=== PATIENT | male | born 1945 | race Caucasian/White ===

== ENCOUNTER 2016-05-27 16:52 | Inpatient (IN) | payer MEDICARE, OTHER ==
[2016-05-27 17:19] LABS: AUTOMATED BASOPHIL 0.2 % (0-2); AUTOMATED EOSINOPHIL 0.3 % (0-5); AUTOMATED LYMPH 7.8 % (17-44); AUTOMATED MONOCYTE 13.8 % (3-10); AUTOMATED NEUTROPHIL 77.9 % (45-76); MPV 7.9 fL (7.4-10.4)
--- NOTE | 2016-05-27 17:19 | EDPRACDOC ---
- History of Present Illness Onset: TODAY? HPI: PT FROM LOCAL SNF VIA EMS WITH REPORTS OF FEVER AND "NECROTIC TOES", PER EMS SNF STAFF REPORTED THAT PT'S TOES WERE "NORMAL" YESTERDAY, NOW ARE BLACK, PT JUST ADMITTED TO SNF ON LAST TUESDAY DUE FOR "REHAB AND WOUND CARE", HAS HX OF TOE ULCER, EVIDENTLY PREVIOUSLY LIVED AT HOME PRIOR TO TUESDAY, PT IS ORIENTED TO SELF ONLY AND IS UNABLE TO GIVE ANY ADDITIONAL HISTORY. PT COMPLAINS OF "PAIN ALL OVER" Relevant History: Reports: Chronic Illness Treated Infection: None Contact Exposure To: NONE Travel To: NONE Symptoms: Reports: Myalgia, Weakness, Other (WOUNDS BILATERAL FEET) <Percy Schaffer - Last Filed: 05/27/16 17:53> <uJan Johnson - Last Filed: 05/27/16 18:22> - General Information Stated Complaint: FEVER Time Seen by Provider: 05/27/16 17:05 Home Medications: Home Medications Rivaroxaban [Xarelto] 20 mg PO DAILY 09/20/13 Aspirin (Enteric Coated) [Halfprin] 81 mg PO DAILY #30 12/15/15 Metoprolol Tartrate [Lopressor] 100 mg PO BID #60 12/15/15 Simvastatin [Zocor] 10 mg PO HS #30 12/15/15 Acetaminophen [Mapap] 650 mg PO Q6H PRN 05/27/16 Allopurinol [Zyloprim] 300 mg PO DAILY 05/27/16 Cefepime HCl 2 gm IV DAILY 05/27/16 Collagenase [Santyl] 2 gm TOP DAILY 05/27/16 Armstrong's Goo 2 gm TOP BID 05/27/16 HydrOXYzine HCl (Antihistamine [Atarax] 25 mg PO Q8H PRN 05/27/16 Nystatin 1 gm TOP DAILY PRN 05/27/16 Omeprazole 20 mg PO DAILY 05/27/16 Oxycodone Immediate Release [Oxycodone Immediate Release (OxyIR)] 5 mg PO Q4H PRN 05/27/16 Allergies/Adverse Reactions: Allergies Allergy/AdvReac Type Severity Reaction Status Date / Time No Known Allergies Allergy Verified 12/09/15 15:58 ED Past Medical History - History Reviewed Yes Nurses notes reviewed and agree except as marked - Patient Medical History Cardiac History: Reports: Coronary Artery Disease (History of PCI and stenting) , Atrial Fibrillation, Hypertension, Congestive Heart Failure (Chronic diastolic ), Cardiac Catheterization (Cardiac stent 2011), Stress Test, Hypercholesterolemia Respiratory History: Denies: Pulmonary Embolism GI/ History: Reports: Renal Disease (History of acute kidney injury and hyperkalemia that resolved) Musculoskeletal History: Reports: Arthritis (R knee) Psychological History: Denies: Depression, Substance Use Disorder Systemic History: Denies: Cancer Surgical History: Reports: Cardiac Catheterization (Cardiac stent 2011), Other ( Knee) - Family Medical History Reports: Hypertension (mother), Diabetes (mother), Cancer (mother - skin; father - prostate), Stroke (mother), Cardiac Disorders (mother - atrial fib) - Social Medical History Smoking Status: Former smoker Social History: Denies: Substance Use Disorder Lives In: [facility] Facility <Percy Schaffer - Last Filed: 05/27/16 17:53> EDM Review of Systems - Review of Systems ROS Unobtainable: Yes ROS cannot be obtained due to patient's medical condition <Percy Schaffer - Last Filed: 05/27/16 17:53> - Physical Exam Constitutional: Alert (Awake), No apparent distress Oriented to: Person Last recorded Vital Signs: Oxygen Pulse Oxygen Saturation O2 Device Oxygen Flow Rate Fraction of Inspired Oxygen ( FIO2) - HEENT Head: Normal ( normocephalic) Eye Exam: Normal (PERRL, EOMI, Sclera white) Oropharynx: Normal (Pharynx:Moist without exudate,Gums-no swelling) Tympanic Membrane: Normal ENT EAC: Normal TMJ: Normal Nose: No Symptoms Reported (septum midline) Neck: Normal (FROM, trachea at midline) - Respiratory/Cardiovascular Respiratory: Normal - CTA (BBS clear to auscultation without adventitious sounds ) Cardiovascular: Normal (RRR without murmur, gallop or rub) - GI Auscultation: Normal (NABS) Palpation: Normal (Soft,No rebound or guarding, non distended) Tenderness: Non tender Mancia's Sign: Negative - Musculoskeletal Back: Normal (Non-Tender) Extremities: Normal (Normal tone, Pulses 2+ No cyanosis or edema, FROM) - Integumentary Skin: Warm, Dry, Other (BILATERAL LOWER LEGS, FEET BANDAGED, BLOODY DRAINAGE NOTED, TOES OF LEFT FOOT NECROTIC DIFFUSE ERYTHEMA NOTED TO BACK AND BUTTOCKS WITH EARLY SKIN BREAKDOWN NOTED BILATERAL BUTTOCKS 3 CM OVAL DECUB NOTED POSTERIOR LEFT THIGH) Lymphatics: Normal (no adenopathy) - Neurologic Memory Impaired: Unable to Test Motor Function: Unable to Test Cranial Nerve: Unable to Test Cerebellar: Unable to Test Mood Description: Calm <Percy Schaffer - Last Filed: 05/27/16 17:53> - Physical Exam Last recorded Vital Signs: Oxygen Pulse Oxygen Saturation O2 Device Oxygen Flow Rate Fraction of Inspired Oxygen ( FIO2) <Juan Johnson - Last Filed: 05/27/16 18:22> - Differential Diagnosis Other (GANGRENE), Sepsis - Re-evaluation Re-evaluation 1 Re-evaluation Time: 17:55 (FEBRILE, DISCUSSED WITH DR JOHNSON HE HAS SEEN PT AND WILL DISCUSS WITH THE HOSPITALIST) - Results 05/27/16 17:00 05/27/16 17:00 05/27/16 17:55 Laboratory Results - last 24 hr 05/27/16 05/27/16 17:00 17:00 WBC 11.9 H RBC 3.46 L Hgb 9.8 L Hct 30.9 L MCV 89 MCH 28.3 MCHC 31.7 L RDW 19.4 H Plt Count 238 MPV 7.9 Neut % (Auto) 77.9 H Lymph % (Auto) 7.8 L Avery % (Auto) 13.8 H Eos % (Auto) 0.3 Baso % (Auto) 0.2 Absolute Neuts (auto) 9.16 H Absolute Lymphs (auto) 0.83 Sodium 134 L Potassium 4.8 Chloride 99 Carbon Dioxide 22 Anion Gap 18 H BUN 113 H Creatinine 5.00 H Estimated GFR (MDRD) 12 L Glucose 104 H Calculated Osmolality 294 H Calcium 7.7 L Corrected Calcium 8.8 Total Bilirubin 0.6 AST 100 H ALT 50 Alkaline Phosphatase 146 Creatine Kinase 1505 H Troponin I < 0.01 Total Protein 6.4 Albumin 2.9 L Amylase 46 Lipase 151 - EKG EKG #1 EKG Time: 17:20 -: Yes EKG interpreted by me Rate: bpm: 112 [place]: Normal Rhythm: Afib Block: None Hypertrophy: None ST: Nonsp Comparison: 09/25/15 (NO CHANGE) - Additional Information OLD RECORDS REVIEWED, PT HAS HX OF PAD SISTER STATES THAT PT WAS CARING FOR HIMSELF AT HOME WITH [employer]ISTANCE OF HOME HEALTH AND MEALS ON WHEELS BEFORE HE WENT TO SNF ON TUESDAY OF LAST WEEK. <SchafferPrecy - Last Filed: 05/27/16 17:53> - Results 05/27/16 17:00 05/27/16 17:00 WBC 11.9 xk/uL (3.8-10.8) H 05/27/16 17:00 RBC 3.46 xM/uL (4.70-6.10) L 05/27/16 17:00 Hgb 9.8 g/dL (14.0-18.0) L 05/27/16 17:00 Hct 30.9 % (42-52) L 05/27/16 17:00 MCV 89 fL (80-94) 05/27/16 17:00 MCH 28.3 pg (27-32) 05/27/16 17:00 MCHC 31.7 g/dl (33-36) L 05/27/16 17:00 RDW 19.4 % (11.5-14.5) H 05/27/16 17:00 Plt Count 238 xk/uL (130-400) 05/27/16 17:00 MPV 7.9 fL (7.4-10.4) 05/27/16 17:00 Neut % (Auto) 77.9 % (45-76) H 05/27/16 17:00 Lymph % (Auto) 7.8 % (17-44) L 05/27/16 17:00 Avery % (Auto) 13.8 % (3-10) H 05/27/16 17:00 Eos % (Auto) 0.3 % (0-5) 05/27/16 17:00 Baso % (Auto) 0.2 % (0-2) 05/27/16 17:00 Absolute Neuts (auto) 9.16 xk/uL (1.7-8.2) H 05/27/16 17:00 Absolute Lymphs (auto) 0.83 xk/uL (0.65-4.75) 05/27/16 17:00 PT 15.8 SEC (9.2-11.2) H 05/27/16 17:00 INR 1.5 05/27/16 17:00 APTT 43.7 SEC (22-35) H 05/27/16 17:00 D-Dimer Quant (PE/DVT) 1010 ng/mL (<500) H 05/27/16 17:00 Sodium 134 mEq/L (137-146) L 05/27/16 17:00 Potassium 4.8 mEq/L (3.5-5.1) 05/27/16 17:00 Chloride 99 mEq/L (98-107) 05/27/16 17:00 Carbon Dioxide 22 mMOL/L (22-33) 05/27/16 17:00 Anion Gap 18 mEq/L (8-16) H 05/27/16 17:00 BUN 113 MG/DL (9-20) H 05/27/16 17:00 Creatinine 5.00 MG/DL (0.66-1.25) H 05/27/16 17:00 Estimated GFR (MDRD) 12 mL/min (>=60) L 05/27/16 17:00 Glucose 104 MG/DL (70-99) H 05/27/16 17:00 Calculated Osmolality 294 MOs/Kg (270-290) H 05/27/16 17:00 Lactic Acid 1.6 mEq/L (0.7-2.1) 05/27/16 17:00 Calcium 7.7 MG/DL (8.4-10.2) L 05/27/16 17:00 Corrected Calcium 8.8 MG/DL (8.4-10.2) 05/27/16 17:00 Total Bilirubin 0.6 MG/DL (0.2-1.3) 05/27/16 17:00 AST 100 IU/L (17-59) H 05/27/16 17:00 ALT 50 IU/L (21-72) 05/27/16 17:00 Alkaline Phosphatase 146 IU/L (50-160) 05/27/16 17:00 Creatine Kinase 1505 IU/L (55-170) H 05/27/16 17:00 CK-MB (CK-2) 16.9 ng/mL (0-4.5) H 05/27/16 17:00 CK-MB (CK-2) Rel Index 1.1 (0.0-2.2) 05/27/16 17:00 Myoglobin 6629.0 ng/mL (0-101) H 05/27/16 17:00 Troponin I < 0.01 ng/mL (<.04) 05/27/16 17:00 Total Protein 6.4 G/DL (6.3-8.2) 05/27/16 17:00 Albumin 2.9 G/DL (3.5-5.0) L 05/27/16 17:00 Amylase 46 IU/L (30-110) 05/27/16 17:00 Lipase 151 U/L (23-300) 05/27/16 17:00 Lab Results 05/27/16 05/27/16 05/27/16 17:00 17:00 17:00 WBC 11.9 H RBC 3.46 L Hgb 9.8 L Hct 30.9 L MCV 89 MCH 28.3 MCHC 31.7 L RDW 19.4 H Plt Count 238 MPV 7.9 Neut % (Auto) 77.9 H Lymph % (Auto) 7.8 L Avery % (Auto) 13.8 H Eos % (Auto) 0.3 Baso % (Auto) 0.2 Absolute Neuts (auto) 9.16 H Absolute Lymphs (auto) 0.83 PT 15.8 H INR 1.5 APTT 43.7 H D-Dimer Quant (PE/DVT) 1010 H Sodium Potassium Chloride Carbon Dioxide Anion Gap BUN Creatinine Estimated GFR (MDRD) Glucose Calculated Osmolality Lactic Acid Calcium Corrected Calcium Total Bilirubin AST ALT Alkaline Phosphatase Creatine Kinase CK-MB (CK-2) CK-MB (CK-2) Rel Index Myoglobin Troponin I Total Protein Albumin Amylase Lipase 05/27/16 05/27/16 17:00 17:00 WBC RBC Hgb Hct MCV MCH MCHC RDW Plt Count MPV Neut % (Auto) Lymph % (Auto) Avery % (Auto) Eos % (Auto) Baso % (Auto) Absolute Neuts (auto) Absolute Lymphs (auto) PT INR APTT D-Dimer Quant (PE/DVT) Sodium 134 L Potassium 4.8 Chloride 99 Carbon Dioxide 22 Anion Gap 18 H BUN 113 H Creatinine 5.00 H Estimated GFR (MDRD) 12 L Glucose 104 H Calculated Osmolality 294 H Lactic Acid 1.6 Calcium 7.7 L Corrected Calcium 8.8 Total Bilirubin 0.6 AST 100 H ALT 50 Alkaline Phosphatase 146 Creatine Kinase 1505 H CK-MB (CK-2) 16.9 H CK-MB (CK-2) Rel Index 1.1 Myoglobin 6629.0 H Troponin I < 0.01 Total Protein 6.4 Albumin 2.9 L Amylase 46 Lipase 151 <Juan Johnson - Last Filed: 05/27/16 18:22> ED Critical Care Note - Critical Care Note Total Time (mins): 30 Comments: Due to the presence of and / or the risk of deterioration, my attendance to this patient required critical care time, including assessment/reassessment, documentation, ordering and interpreting ancillary studies, discussion with ED staff and consultants,patient and family, and excludes time spent on separately billable procedures. <Percy Schaffer - Last Filed: 05/27/16 17:53> - Departure Education/Counseling Given To: Patient, Family Member Education/Counseling Given Regarding: Diagnosis, Treatment, Prognosis, Follow Up <Percy Schaffer - Last Filed: 05/27/16 17:53> - Departure Yes I personally saw and evaluated the patient. Disposition: Admit IP To This Hospital Decision to Admit Time: 18:22 Decision to admit date: 05/27/16 Decision to admit: from ED - Physician Consulted Hospitalist Time Called: 18:22 Provider Called: Sal Odom Time Photolith Operator Returned Call: 18:22 <Juan Johnson - Last Filed: 05/27/16 18:22> - Departure Condition: Serious Final Diagnosis: GANGRENE LEFT FOOT, Acute on chronic renal failure, PAD (peripheral artery disease) Sepsis Qualifiers: Sepsis type: sepsis due to unspecified organism Qualified Code(s): A41.9 - Sepsis, unspecified organism Rhabdomyolysis Qualifiers: Rhabdomyolysis type: non-traumatic Qualified Code(s): M62.82 - Rhabdomyolysis
[2016-05-27 17:32] LABS: BLOOD UREA NITROGEN 113 MG/DL (9-20); CALC CORRECTED 8.8 MG/DL (8.4-10.2); CALCIUM 7.7 MG/DL (8.4-10.2); CALCULATED OSMOLALITY 294 MOs/Kg (270-290); CHLORIDE 99 mEq/L (98-107); CPK TOTAL WITH POSSIBLE MB 1505 IU/L (55-170); GLUCOSE 104 MG/DL (70-99); SODIUM LEVEL 134 mEq/L (137-146); TOTAL PROTEIN 6.4 G/DL (6.3-8.2)
[2016-05-27 17:41] LABS: PARTIAL THROMB. TIME 43.7 SEC (22-35); PT-INR 1.5
[2016-05-27 17:47] LABS: CPKMB 16.9 ng/mL (0-4.5); CPKMB RELATIVE INDEX 1.1 (0.0-2.2)
[2016-05-27] MEDS ORDERED: NS 1,000 ML IV ONE ×4 (17:58→23:57)
[2016-05-27] MEDS ORDERED: Pharmacy Order Set Alert SCH ×2 (18:00→22:00)
--- NOTE | 2016-05-27 18:14 | DIRPT ---
CLINICAL DATA: Fever, necrotic toes. EXAM: PORTABLE CHEST 1 VIEW COMPARISON: 12/14/2015 FINDINGS: There is elevation of the right diaphragm. There is no focal parenchymal opacity. There is no pleural effusion or pneumothorax. The heart and mediastinal contours are unremarkable. Right-sided PICC line with the tip projecting over the cavoatrial junction. The osseous structures are unremarkable. IMPRESSION: No active disease. Electronically Signed By: Akilah Lamb On: 05/27/2016 18:11
[2016-05-27 18:33] LABS: LEUKOCYTES/URINE NEG (NEGATIVE); NITRITE/URINE NEG (NEGATIVE); URINE OCCULT BLOOD 1+ (NEG/TRACE); WBC/URINE 0-2 (0-2)
[2016-05-27] MEDS ORDERED: FENTANYL 100 MCG/2 ML VIAL IV ONE (18:36)
[2016-05-27] MEDS ORDERED: CHAPSTICK LIP BALM TOP ONE (19:45)
[2016-05-27] MEDS ORDERED: PIPERACILLIN AND TAZOBACTAM 3.375 GM in D5W 100 ML IV ONE (20:00)
--- NOTE | 2016-05-27 20:19 | HISTPHYS ---
- Chief Complaint altered mental status, toes black - History of Present Illness PRIMARY CARE PROVIDER: Previously Dr. Reardon. Is Dr. Leigh at [facility]. HPI: The patient is a 71 yo man with a long history of peripheral vascular disease in his lower extremities, with development of toe ulcer starting about 6 months ago and gradually progressive to other toes, who presents today from his retirement facility with acute worsening of his toe lesions, toes now black , and having altered mental status. The patient is severely fatigued, in pain, and often somnolent, so his sister gives much of the history. His sister reports that his feet have been painful for him for about a year, but that it worsened 6 months ago to the point that eventually he had to be placed in a group home. His toes have had chronic wounds that are being treated. She reports she visited the patient several days ago and he was in his usual state of health, but the day before yesterday he was not acting quite right. Yesterday the patient's toes were somewhat worse, and labs were drawn. He was found to have abnormal labs, and these were treated at the facility. Then today , he had a marked change in color of his toes, worsening pain, and altered mental status. The facility sent the patient to the emergency department for further evaluation. Onset: Peripheral vascular disease for over a year, gradually worsening to include toe ulcerations and chronic foot and leg wounds. Marked color change in toes today. Duration: Progressively worsening. Location: bilateral lower extremities from below knees to toes. Left foot much worse than right. Radiation: in both legs. Character: Severe pain, 10/10, sharp. Alleviated by: Nothing. Exacerbated by: movement or touching leg. Associated Symptoms: Black toes with exudate. Severe pain. Erythema of both extremities. Open wounds. Bleeding of skin on lower legs and feet as well as the toes. Unable to get out of bed or bear weight on legs; barely able to even move the legs. Weakness in both legs, symmetric. Confusion, somnolence. Fever, chills, and diaphoresis. Shortness of breath. No wheezing. Treatments: none at home except usual medications. - Medical History Cardiac History: Reports: Coronary Artery Disease (History of PCI and stenting) , Atrial Fibrillation, Hypertension, Congestive Heart Failure (Chronic diastolic. EF 50%.), Cardiac Catheterization (Cardiac stent 2011), Stress Test, Hypercholesterolemia, Other (Severe peripheral vascular disease, with chronic wounds in legs.) Respiratory History: Reports: Emphysema. Denies: Pulmonary Embolism GI/ History: Reports: Renal Disease (History of acute kidney injury and hyperkalemia that resolved), Gastroesophageal Reflux Musculoskeletal History: Reports: Arthritis (R knee), Gout, Rheumatoid Arthritis (AND LUPUS) Systemic History: Denies: Cancer Psychological History: Denies: Depression, Substance Use Disorder - Surgical History Reports: Cardiac Catheterization (Cardiac stent 2011), Other (Knee) - Medictions/Allergies Allergies No Known Allergies Allergy (Verified 12/09/15 15:58) Current Medication List: Reviewed Home Medications Rivaroxaban [Xarelto] 20 mg PO DAILY 09/20/13 Aspirin (Enteric Coated) [Halfprin] 81 mg PO DAILY #30 12/15/15 Metoprolol Tartrate [Lopressor] 100 mg PO BID #60 12/15/15 Simvastatin [Zocor] 10 mg PO HS #30 12/15/15 Acetaminophen [Mapap] 650 mg PO Q6H PRN 05/27/16 Allopurinol [Zyloprim] 300 mg PO DAILY 05/27/16 Cefepime HCl 2 gm IV DAILY 05/27/16 Collagenase [Santyl] 2 gm TOP DAILY 05/27/16 Armstrong's Goo 2 gm TOP BID 05/27/16 HydrOXYzine HCl (Antihistamine [Atarax] 25 mg PO Q8H PRN 05/27/16 Nystatin 1 gm TOP DAILY PRN 05/27/16 Omeprazole 20 mg PO DAILY 05/27/16 Oxycodone Immediate Release [Oxycodone Immediate Release (OxyIR)] 5 mg PO Q4H PRN 05/27/16 - Family History Reports: Hypertension (mother), Diabetes (mother), Cancer (mother - skin; father - prostate), Stroke (mother), Cardiac Disorders (mother - atrial fib) - Social History Smoking Status: Former smoker Social History: Denies: Alcohol Use, Substance Use Disorder - Review of Systems GENERAL: Fever, chills, and diaphoresis. Positive for fatigue/malaise. HEENT: No ear pain or discharge. No nasal discharge or bleeding. No throat pain or swelling. No eye pain or eye redness. RESPIRATORY: No cough, wheezing. Shortness of breath. CARDIOVASCULAR: No chest pain or palpitations. GI: No abdominal pain, nausea, vomiting, diarrhea, constipation, or bloody stool. NEUROLOGICAL: No headache. Has focal weakness in both legs. INTEGUMENT: Erythema and open wounds with pain on lower legs. Has exudate, pain , necrosis of toes. No itching. LYMPHATIC SYSTEM: no lymph node swelling or pain. MUSCULOSKELETAL: Except in legs, no new pain or joint swelling. GENITOURINARY: No dysuria or hematuria. ENDOCRINE: No polyuria or polydipsia. HEME: No chronic anemia. Having some bleeding from lower legs. Easy bruising. - Physical Exam Vital Signs: Initial Vitals Temperature 100.1 F 05/27/16 16:55 Pulse Rate 86 05/27/16 16:55 Respiratory Rate 20 05/27/16 16:55 Blood Pressure 107/58 L 05/27/16 16:55 Pulse Oxygen Saturation 95 05/27/16 16:55 05/27/16 05/27/16 05/27/16 21:14 21:45 22:00 Temperature 98.9 F Pulse Rate 85 100 84 Respiratory 18 18 18 Rate Blood Pressure 90/52 L 113/58 L 125/84 Pulse Oxygen 97 95 94 Saturation 05/27/16 05/27/16 05/27/16 22:15 22:30 22:45 Temperature Pulse Rate 85 83 82 Respiratory 18 18 18 Rate Blood Pressure 93/53 L 110/58 L 106/58 L Pulse Oxygen 96 96 96 Saturation 05/27/16 05/27/16 05/27/16 23:00 23:15 23:30 Temperature Pulse Rate 83 85 83 Respiratory 18 18 18 Rate Blood Pressure 90/52 L 69/42 L 145/64 Pulse Oxygen 96 96 92 Saturation - Other Exam Other Exam Findings: GENERAL: Ill-appearing, well nourished, in acute distress. HEENT: Normocephalic, atraumatic; pupils equal and round. Nares patent, without discharge or bleeding. No oropharyngeal lesions or erythema. Mucous membranes are dry. NECK: is supple, no masses, trachea midline. RESPIRATORY: Clear to auscultation bilaterally. Chest wall movements are symmetric. No use of accessory muscles to breathe. No wheezing, rales, rhonchi. CARDIOVASCULAR: Normal S1, S2. No rubs, or gallops. PMI non-displaced. Carotids : no carotid bruits. Tachycardia. DP pulses barely palpable bilaterally. GI: soft, nontender, non-distended, normal active bowel sounds. No hepatosplenomegaly. INTEGUMENT: Clean, diaphoretic. * Left toes: black escar, necrosis of most of the surface of all toes of left foot; left great toe is the most severe. Rest of each toe is erythematous. Purulent exudate seeping from between toes and from great toe and 2nd toe. Toes are bloody. Severe tenderness to palpation. Warmth. * Left foot/ankle/heel: Erythematous, bloody, with superficial layers of skin removed over parts of the foot. Warmth. Severe tenderness to palpation. Wound on heel. * Left lower leg: Dry with scaling skin on the upper third of left lower leg. On the lower two thirds of the left lower leg: open skin and wounds with erythema, raw, with areas of bloody skin, very tender, warm. * Right toes: with areas of erythema and a few areas of necrotic black toe, but much less than found on the left foot. * Right foot/ankle: mild erythema but not bloody. Tender to palpation and warm. * Right lower leg: Dry with scaling skin on the two thirds of right lower leg. On the lower third of the right lower leg: Erythema, raw, with areas of open bloody skin, very tender, warm. MUSCULOSKELETAL: No cyanosis. No clubbing. Edema: 1+ pitting edema in the lower extremities bilaterally, with 2+ pitting in the left foot. NEUROLOGICAL: Cranial nerves 2-12 grossly intact. Motor 3+ to 4/5 in upper extremities. 2+/5 in right lower extremity and 1/5 in left lower extremity. Reflexes: decreased bilaterally. Babinski: unable to perform due to severity of patient's open wounds and tenderness. Intact Finger to nose. Sensory grossly intact to light touch. Intact rapid alternating movements bilaterally. No pronator drift. PSYCHIATRIC: Oriented to person and place. Intermittently somnolent. LYMPHATIC: No cervical lymphadenopathy. No supraclavicular lymphadenopathy. - Lab Results Laboratory Tests 05/27/16 05/27/16 05/27/16 17:00 17:00 17:00 WBC 11.9 H RBC 3.46 L Hgb 9.8 L Hct 30.9 L MCV 89 MCH 28.3 MCHC 31.7 L RDW 19.4 H Plt Count 238 MPV 7.9 Neut % (Auto) 77.9 H Lymph % (Auto) 7.8 L Putnam % (Auto) 13.8 H Eos % (Auto) 0.3 Baso % (Auto) 0.2 Absolute Neuts (auto) 9.16 H Absolute Lymphs (auto) 0.83 ESR PT INR APTT D-Dimer Quant (PE/DVT) Sodium 134 L Potassium 4.8 Chloride 99 Carbon Dioxide 22 Anion Gap 18 H BUN 113 H Creatinine 5.00 H Estimated GFR (MDRD) 12 L Glucose 104 H Calculated Osmolality 294 H Lactic Acid 1.6 Calcium 7.7 L Corrected Calcium 8.8 Total Bilirubin 0.6 AST 100 H ALT 50 Alkaline Phosphatase 146 Creatine Kinase 1505 H CK-MB (CK-2) 16.9 H CK-MB (CK-2) Rel Index 1.1 Myoglobin 6629.0 H Troponin I < 0.01 Total Protein 6.4 Albumin 2.9 L Amylase 46 Lipase 151 Urine Color Urine Clarity Urine pH Ur Specific Eddy Urine Protein Urine Glucose (UA) Urine Ketones Urine Occult Blood Urine Nitrite Urine Bilirubin Urine Urobilinogen Ur Leukocyte Esterase Urine RBC Urine WBC Ur Epithelial Cells Urine Bacteria Hyaline Casts Blood Type Antibody Screen Crossmatch 05/27/16 05/27/16 05/27/16 17:00 17:00 17:45 WBC RBC Hgb Hct MCV MCH MCHC RDW Plt Count MPV Neut % (Auto) Lymph % (Auto) Putnam % (Auto) Eos % (Auto) Baso % (Auto) Absolute Neuts (auto) Absolute Lymphs (auto) ESR PT 15.8 H INR 1.5 APTT 43.7 H D-Dimer Quant (PE/DVT) 1010 H Sodium Potassium Chloride Carbon Dioxide Anion Gap BUN Creatinine Estimated GFR (MDRD) Glucose Calculated Osmolality Lactic Acid Calcium Corrected Calcium Total Bilirubin AST ALT Alkaline Phosphatase Creatine Kinase CK-MB (CK-2) CK-MB (CK-2) Rel Index Myoglobin Troponin I Total Protein Albumin Amylase Lipase Urine Color Dark yellow Urine Clarity Sl hzy Urine pH 6.0 Ur Specific Eddy 1.020 Urine Protein Neg Urine Glucose (UA) Neg Urine Ketones Neg Urine Occult Blood 1+ H Urine Nitrite Neg Urine Bilirubin Neg Urine Urobilinogen <2.0 Ur Leukocyte Esterase Neg Urine RBC 5-10 H Urine WBC 0-2 Ur Epithelial Cells 1+ Urine Bacteria Few Hyaline Casts 10-20 H Blood Type Antibody Screen Crossmatch 05/27/16 05/27/16 05/27/16 20:20 23:00 23:00 WBC RBC Hgb Hct MCV MCH MCHC RDW Plt Count MPV Neut % (Auto) Lymph % (Auto) Putnam % (Auto) Eos % (Auto) Baso % (Auto) Absolute Neuts (auto) Absolute Lymphs (auto) ESR PT INR APTT D-Dimer Quant (PE/DVT) Sodium Potassium Chloride Carbon Dioxide Anion Gap BUN Creatinine Estimated GFR (MDRD) Glucose Calculated Osmolality Lactic Acid Calcium Corrected Calcium Total Bilirubin AST ALT Alkaline Phosphatase Creatine Kinase 2530 H 3175 H CK-MB (CK-2) 18.4 H 21.6 H CK-MB (CK-2) Rel Index 0.7 0.7 Myoglobin 8062.0 H Troponin I < 0.01 < 0.01 Total Protein Albumin Amylase Lipase Urine Color Urine Clarity Urine pH Ur Specific Eddy Urine Protein Urine Glucose (UA) Urine Ketones Urine Occult Blood Urine Nitrite Urine Bilirubin Urine Urobilinogen Ur Leukocyte Esterase Urine RBC Urine WBC Ur Epithelial Cells Urine Bacteria Hyaline Casts Blood Type O POSITIVE Antibody Screen Negative Crossmatch See Detail 05/27/16 23:00 WBC RBC Hgb Hct MCV MCH MCHC RDW Plt Count MPV Neut % (Auto) Lymph % (Auto) Putnam % (Auto) Eos % (Auto) Baso % (Auto) Absolute Neuts (auto) Absolute Lymphs (auto) ESR 123 H PT INR APTT D-Dimer Quant (PE/DVT) Sodium Potassium Chloride Carbon Dioxide Anion Gap BUN Creatinine Estimated GFR (MDRD) Glucose Calculated Osmolality Lactic Acid Calcium Corrected Calcium Total Bilirubin AST ALT Alkaline Phosphatase Creatine Kinase CK-MB (CK-2) CK-MB (CK-2) Rel Index Myoglobin Troponin I Total Protein Albumin Amylase Lipase Urine Color Urine Clarity Urine pH Ur Specific Eddy Urine Protein Urine Glucose (UA) Urine Ketones Urine Occult Blood Urine Nitrite Urine Bilirubin Urine Urobilinogen Ur Leukocyte Esterase Urine RBC Urine WBC Ur Epithelial Cells Urine Bacteria Hyaline Casts Blood Type Antibody Screen Crossmatch - Diagnostic Findings EK bpm. Atrial fibrillation with RVR. Low voltage QRS. Possible septal infarct, age undetermined. Reviewed EKG personally. Chest x-ray, viewed personally: EXAM: PORTABLE CHEST 1 VIEW COMPARISON: 12/14/2015 FINDINGS: There is elevation of the right diaphragm. There is no focal parenchymal opacity. There is no pleural effusion or pneumothorax. The heart and mediastinal contours are unremarkable. Right-sided PICC line with the tip projecting over the cavoatrial junction. The osseous structures are unremarkable. IMPRESSION: No active disease. - Assessment (1) Sepsis A41.9 - SEPSIS, UNSPECIFIED ORGANISM Acute Present on Admission: Yes Qualifiers: Sepsis type: sepsis due to unspecified organism Qualified Code(s): A41.9 - Sepsis, unspecified organism (2) Dry gangrene I96 - GANGRENE, NOT ELSEWHERE CLASSIFIED Acute Present on Admission: Yes Severe worsenening over 1.5 days prior to admission. Plan: Likely needs amputation. IV antibiotics: IV Zosyn and Vancomycin ordered. Consulted Dr. Interiano, who will provide management of the gangrene. (3) Acute renal failure N17.9 - ACUTE KIDNEY FAILURE, UNSPECIFIED Acute Present on Admission: Yes Qualifiers: Acute renal failure type: with acute tubular necrosis Qualified Code(s): N17.0 - Acute kidney failure with tubular necrosis (4) Rhabdomyolysis M62.82 - RHABDOMYOLYSIS Acute Present on Admission: Yes Qualifiers: Rhabdomyolysis type: non-traumatic Qualified Code(s): M62.82 - Rhabdomyolysis (5) Metabolic encephalopathy G93.41 - METABOLIC ENCEPHALOPATHY Acute Present on Admission: Yes - Plan PLAN: (1) Sepsis A41.9 - SEPSIS, UNSPECIFIED ORGANISM Acute Present on Admission: Yes Qualifiers: Sepsis type: sepsis due to unspecified organism Qualified Code(s): A41.9 - Sepsis, unspecified organism Present on admission. Criteria: Pulse of 90, resp rate 22 witnessed, fever prior to arrival. Source: Gangrene of the toes. Plan: Sepsis order set. Cultures ordered. IV antibiotics: IV Vancomycin and Zosyn. First dose of Vancomycin given in the ED; will likely not need another dose for days because the patient's creatinine is greater than 5. IV fluids to provide volume. Monitor for signs of volume depletion, monitor blood pressure carefully. If still hypotensive with IV fluids consider pressors. Close monitoring. Telemetry. IVF: initial IVF 30 mL/kg x 1, then 250 mL/hr x 1 L, then maintenance IVF. (2) Dry gangrene I96 - GANGRENE, NOT ELSEWHERE CLASSIFIED Acute Present on Admission: Yes Severe worsenening over 1.5 days prior to admission. Plan: Likely needs amputation. IV antibiotics: IV Zosyn and Vancomycin ordered. Consulted Dr. Interiano, who will provide management of the gangrene. (3) Acute renal failure N17.9 - ACUTE KIDNEY FAILURE, UNSPECIFIED Acute Present on Admission: Yes Likely multifactorial. Could be due in part to the rhabdomyolysis and sepsis. Plan: Cultures. Ultrasound - renal. IVFs. (4) Rhabdomyolysis M62.82 - RHABDOMYOLYSIS Acute Present on Admission: Yes Qualifiers: Rhabdomyolysis type: non-traumatic Qualified Code(s): M62.82 - Rhabdomyolysis Likely due to the acutely worsening gangrene. Plan: IVFs at 250 mL/hr after boluses if patient is able to tolerate. Monitor CPK and myoglobin. (5) Metabolic encephalopathy G93.41 - METABOLIC ENCEPHALOPATHY Acute Present on Admission: Yes Likely due to sepsis and gangrene along with renal failure. Plan: Monitor. Neuro checks. In summary, this patient is acutely and critically ill. The patient requires treatment of vital organ failure and measures to prevent further life- threatening deterioration of condition. I have spent 60 min in the critical care of this patient. Case Care Discussed with: Patient, Family, Nursing Staff Total Time: 60 min Critical Care: Yes Code: 291 - Focused CV Perfusion Exam Date exam occurred: 05/27/16 Time of Exam: 20:30 Vital Signs: Last Vital Signs Temp 98.9 F 05/27/16 21:45 Pulse 136 H 05/27/16 22:30 Resp 18 05/27/16 22:30 BP 110/58 L 05/27/16 22:30 Pulse Ox 96 05/27/16 22:30 Respiratory: Chest non-tender, Lungs clear, No accessory muscle use. negative: Crackles, Rales, Rhonchi Cardiovascular/Chest: Tachycardia (Normal S1, S2) Capillary Refill: Greater than 3 seconds Peripheral pulses: Diminished: Dorsalis pedis (R), Dorsalis pedis (L), Posterior tibialis (R), Posterior tibialis (L), Full: Radial (R), Radial (L) Skin Color: Erythema, Blackened Skin Turgor: <3 Seconds
--- NOTE | 2016-05-27 20:53 | PCM.SURGCO ---
Consultation Date: 05/27/16 Requesting Physician: Sal Odom Foil Operator: Frankie Itneriano Consult Reason: Wound - History of Present Illness This is a 71 year old male that has been residing at [facility] for approximately one week. The patient is oriented only to himself. The history was obtained from the patient' s chart. The distal aspect of all five toes apparently turned black yesterday or today according to the patient's chart. The patient had been receiving wound care at [facility]. He presented to the emergency department with evidence of septic shock. Chief Complaint: altered mental status, toes black - Past Medical and Surgical History Cardiac History: Reports: Coronary Artery Disease (History of PCI and stenting) , Atrial Fibrillation, Hypertension, Congestive Heart Failure (Chronic diastolic. EF 50%.), Cardiac Catheterization (Cardiac stent 2011), Stress Test, Hypercholesterolemia Respiratory History: Denies: Pulmonary Embolism GI/ History: Reports: Renal Disease (History of acute kidney injury and hyperkalemia that resolved), Gastroesophageal Reflux Systemic History: Denies: Cancer Musculoskeletal History: Reports: Arthritis (R knee), Gout, Rheumatoid Arthritis (AND LUPUS) Psychological History: Denies: Depression, Substance Use Disorder Past Surgical History: Reports: Cardiac Catheterization (Cardiac stent 2011), Other (Knee) Allergies No Known Allergies Allergy (Verified 12/09/15 15:58) Home Medications Rivaroxaban [Xarelto] 20 mg PO DAILY 09/20/13 Aspirin (Enteric Coated) [Halfprin] 81 mg PO DAILY #30 12/15/15 Metoprolol Tartrate [Lopressor] 100 mg PO BID #60 12/15/15 Simvastatin [Zocor] 10 mg PO HS #30 12/15/15 Acetaminophen [Mapap] 650 mg PO Q6H PRN 05/27/16 Allopurinol [Zyloprim] 300 mg PO DAILY 05/27/16 Cefepime HCl 2 gm IV DAILY 05/27/16 Collagenase [Santyl] 2 gm TOP DAILY 05/27/16 Armstrong's Goo 2 gm TOP BID 05/27/16 HydrOXYzine HCl (Antihistamine [Atarax] 25 mg PO Q8H PRN 05/27/16 Nystatin 1 gm TOP DAILY PRN 05/27/16 Omeprazole 20 mg PO DAILY 05/27/16 Oxycodone Immediate Release [Oxycodone Immediate Release (OxyIR)] 5 mg PO Q4H PRN 05/27/16 - Social History Travel Outside of [place] in the Last 3 Months?: No Lives: in Retirement/SNF Smoking Status: Former smoker - Family History Reports: Hypertension (mother), Diabetes (mother), Cancer (mother - skin; father - prostate), Stroke (mother), Cardiac Disorders (mother - atrial fib) - Review of Systems Yes All systems reviewed and were negative except as marked (twelve systems reviewed) - Physical Exam Vital Signs: Initial Vitals Temperature 100.1 F 05/27/16 16:55 Pulse Rate 86 05/27/16 16:55 Respiratory Rate 20 05/27/16 16:55 Blood Pressure 107/58 L 05/27/16 16:55 Pulse Oxygen Saturation 95 05/27/16 16:55 Constitutional: Confused, Decreased Consciousness, Somnolent. negative: Alert Oriented to: Person - HEENT Head: Normal Eye: Pale Conjunctiva Oropharynx: Membranes Dry Nose: No Symptoms Reported Respiratory: Normal - CTA, Diminished (at bilateral bases.) Cardiovascular: Normal - GI Auscultation: Normal Palpation: Normal Tenderness: Non tender Rectal Exam: Deferred - Exam Deferred: Yes - Musculoskeletal Extremities: Edema (At the right lower extremity there is deep wrinkling of the skin with evidence of previous edema that has been compressed. There is palpable dorsalis pedis pulse. At the left lower extremity there is deep wrinkling of the skin with evidence of previous edema that has been compressed. There is superficial openings of the skin at the lateral farrell, dorsum of the foot and lateral foot with weeping of blood and clear fluid. There is a faint + 1 dorsalis pedis pulse. The distal aspect of all five digits are black.) - Integumentary Skin: Pale, Other (wounds as described above.) Lymphatics: Normal - Lab Results 05/27/16 17:00 05/27/16 17:00 - Diagnostic Findings Intake & Output 05/24/16 05/25/16 05/26/16 05/27/16 23:59 23:59 23:59 23:59 Patient's weight 122.64 kg - Assessment/Plan (1) PAD (peripheral artery disease) I73.9 - PERIPHERAL VASCULAR DISEASE, UNSPECIFIED Chronic Present on Admission: Yes Comment: The patient has severe peripheral arterial disease. There is concern that compression wraps or infection may have contributed to low blood flow to the distal aspect of all five digits of the left foot. The patient will require amputation of these digits when medically stable. There is dry gangrene at this time. (2) Dry gangrene I96 - GANGRENE, NOT ELSEWHERE CLASSIFIED Acute Present on Admission: Yes Comment: Dry gangrene of the distal aspect of all five digits of the left foot secondary to infection and low blood flow state. There is no abscess identified at this time. The patient will require amputation when medically stable. We will also evaluate for other soft tissue sources of infection that could cause sepsis as the patient has a history of perirectal infections and fistulas. We will plan for intravenous broad spectrum antibiotics, admission to the intensive care unite and intravenous fluids. I discussed the current treatment plan with the patient and Dr. Odom, hospitalist. All questions were answered. Case Care Discussed with: Patient, Consultants (Dr. Odom, Dr. Mccoy)
[2016-05-27 20:54] LABS: CPK TOTAL WITH POSSIBLE MB 2530 IU/L (55-170)
[2016-05-27 21:34] LABS: CPKMB 18.4 ng/mL (0-4.5); CPKMB RELATIVE INDEX 0.7 (0.0-2.2)
[2016-05-27] MEDS ORDERED: BISACODYL 5 MG TAB PO PRN (21:55)
[2016-05-27] MEDS ORDERED: PROMETHAZINE 25 MG/ML VIAL IV PRN (21:55)
[2016-05-27] MEDS ORDERED: TEMAZEPAM 15 MG CAP PO PRN (21:55)
[2016-05-27] MEDS ORDERED: BENZONATATE 100 MG PERLES PO PRN (21:55)
[2016-05-27] MEDS ORDERED: SENNA CONCENTRATE TAB PO PRN (21:55)
[2016-05-27] MEDS ORDERED: SIMETHICONE 80 MG TAB PO PRN (21:55)
[2016-05-27] MEDS ORDERED: Docusate Sodium 100 MG CAP PO PRN (21:55)
[2016-05-27] MEDS ORDERED: ONDANSETRON HCL 4 MG/2 ML VIAL IV PRN (21:55)
[2016-05-27] MEDS ORDERED: GUAIFEN 100 MG-DEXTROMETH 10 MG PER 5 ML PO PRN (21:55)
[2016-05-27] MEDS ORDERED: LIDOCAINE 1% 5 ML (METHYLPARABEN FREE) ONE (22:30)
[2016-05-27] MEDS ORDERED: LIDOCAINE 2% VISCOUS ORAL 15 ML PO ONE (22:30)
--- NOTE | 2016-05-27 22:55 | HIMOPRPT ---
DATE OF PROCEDURE: 05/27/16 PREOPERATIVE DIAGNOSIS: Abscess of right buttock . POSTOPERATIVE DIAGNOSIS: Abscess of right buttock. PROCEDURE: Incision and drainage of right buttock abscess. SURGEON: Frankie Interiano MD ANESTHESIA: Local anesthesia of 1% lidocaine. SPECIMEN: None SPONGE COUNT: Correct. PATIENT CONDITION: Stable. ESTIMATED BLOOD LOSS: 1 cc. INDICATIONS: This is a 71 year old male with an abscess at the right buttock. It was recommended to the patient incision and drainage of right buttock abscess. The indications, benefits and risks associated with the operation were discussed with the patient. The risks include, but are not limited to, bleeding, infection, chronic non healing wound and chronic pain. All questions were answered. Informed consent was obtained.. FINDINGS: There was purulent drainage from an abscess of the right buttock. There was no identifiable fistula to the anus or rectum at this time. PROCEDURE IN DETAIL: Mr. Paniagua was placed in the left lateral location in his ICU bed. The right buttock was prepped and draped in sterile fashion. All members of the surgical team were in agreement, correct patient and correct procedure. The area was infiltrated with local anesthetic. It was incised with a #11 blade. There was purulent drainage. It was irrigated. Hemostasis was excellent. One inch iodoform gauze was placed. Dressing was applied. The patient tolerated the procedure well. .
[2016-05-27] MEDS ORDERED: COLLAGENASE OINTMENT 30 GM TUBE TOP SCH (23:00)
[2016-05-27 23:59] LABS: CPK TOTAL WITH POSSIBLE MB 3175 IU/L (55-170)
--- NOTE | 2016-05-28 00:32 | DIRPT ---
CLINICAL DATA: Acute renal failure. EXAM: RENAL / URINARY TRACT ULTRASOUND COMPLETE COMPARISON: CT angiography 03/24/2016 FINDINGS: Right Kidney: Length: 10.4 cm. Echogenicity within normal limits. No mass or hydronephrosis visualized. Small echogenic foci in the renal lety, may be nonobstructing stones or vascular. Left Kidney: Length: 10.6 cm. Echogenicity within normal limits. No mass or hydronephrosis visualized. Small echogenic foci in the renal lety, may be nonobstructing stones or vascular. Trace fluid about the inferior kidney. Bladder: Appears normal for degree of bladder distention. IMPRESSION: No obstructive uropathy. Tiny echogenic foci in both renal lety, may be nonobstructing stones or vascular in etiology. Electronically Signed By: Ruby Germain M.D. On: 05/28/2016 00:29
[2016-05-28] MEDS: CHLORHEXIDINE (HIBICLENS) 4 OZ BOTTLE TOP SCH (00:34)
[2016-05-28 00:37] LABS: CPKMB 21.6 ng/mL (0-4.5); CPKMB RELATIVE INDEX 0.7 (0.0-2.2)
[2016-05-28 03:58] LABS: CPKMB 21.5 ng/mL (0-4.5); CPKMB RELATIVE INDEX 0.7 (0.0-2.2)
[2016-05-28] MEDS ORDERED: PIPERACILLIN AND TAZOBACTAM 4.5 GM in D5W 100 ML IV SCH (04:00)
[2016-05-28] MEDS: PIPERACILLIN AND TAZOBACTAM 3.375 GM in D5W 100 ML IV SCH ×3 (04:02→20:13)
[2016-05-28] MEDS ORDERED: NS 1,000 ML IV ONE (05:23)
[2016-05-28 05:59] LABS: MPV 7.9 fL (7.4-10.4)
[2016-05-28] MEDS ORDERED: PANTOPRAZOLE 40 MG TAB PO SCH (06:00)
[2016-05-28] MEDS: NS 1,000 ML IV SCH ×4 (06:07→20:13)
[2016-05-28 06:39] LABS: BLOOD UREA NITROGEN 94 MG/DL (9-20); CALCULATED OSMOLALITY 296 MOs/Kg (270-290); CHLORIDE 108 mEq/L (98-107); GLUCOSE 117 MG/DL (70-99); SODIUM LEVEL 138 mEq/L (137-146); TOTAL PROTEIN 4.4 G/DL (6.3-8.2)
[2016-05-28 06:45] LABS: CALCIUM 6.7 MG/DL (8.4-10.2)
[2016-05-28 07:16] LABS: CPKMB RELATIVE INDEX 0.7 (0.0-2.2)
--- NOTE | 2016-05-28 08:11 | GENMEDPROG ---
Subjective Note: Patient in bed responsive follows commands, acutely ill and toxic-appearing. Periods of confusion noted. Reports severe bilateral leg pain. Notes Reviewed: Yes Events from last night noted and discussed with Clinical Staff Current Medication List: Reviewed Currently: Reports: Cough, CLAYTON, Sputum, Reflux Sx DVT Prophylaxis: Yes - Physical Examination Vital Signs and I&O: Last Vital Signs Temp 98 F 05/28/16 07:00 Pulse 95 05/28/16 07:00 Resp 18 05/28/16 07:00 BP 111/78 05/28/16 07:00 Pulse Ox 98 05/28/16 07:00 Oxygen Pulse Oxygen Saturation 98 O2 Device Room Air Oxygen Flow Rate Fraction of Inspired Oxygen ( FIO2) Intake & Output 05/25/16 05/26/16 05/27/16 05/28/16 23:59 23:59 23:59 23:59 Intake Total 2600 2256 Output Total 400 300 Balance 2200 1956 Patient's weight 122.64 kg 99.382 kg General: Cooperative, Moderate distress HEENT: Normal, PERRLA, EOMI, Anicteric Sclera Neck: Normal Trachea alignment, Limited range of motion Lymphatics: Normal Respiratory: Normal - CTA, Diminished (at bilateral bases.), Rhonchi Cardiovascular: Regular rate, Normal S1, Normal S2, Murmurs GI: Normal bowel sounds, Soft, Non tender, No hepatospenomegaly, No masses Extremities/Musculoskeletal: Other (Necrotic changes involving distal aspects of both feet) Skin: No rashes Neurological: Normal speech, Normal tone, Reflexes 2+ Psych/Mental Status: Anxious Lab/DI/Studies Reviewed: Allergies No Known Allergies Allergy (Verified 12/09/15 15:58) Last Vital Signs Temp 98 F 05/28/16 07:00 Pulse 95 05/28/16 07:00 Resp 18 05/28/16 07:00 BP 111/78 05/28/16 07:00 Pulse Ox 98 05/28/16 07:00 05/28/16 05:15 05/28/16 05:15 Abnormal Lab Results 05/27/16 05/27/16 05/27/16 17:00 17:00 17:00 WBC 11.9 H RBC 3.46 L Hgb 9.8 L Hct 30.9 L MCHC 31.7 L RDW 19.4 H Neut % (Auto) 77.9 H Lymph % (Auto) 7.8 L [place] % (Auto) 13.8 H Absolute Neuts (auto) 9.16 H ESR PT 15.8 H APTT 43.7 H D-Dimer Quant (PE/DVT) Sodium 134 L Chloride Carbon Dioxide Anion Gap 18 H BUN 113 H Creatinine 5.00 H Estimated GFR (MDRD) 12 L Glucose 104 H Calculated Osmolality 294 H Calcium 7.7 L AST 100 H Creatine Kinase 1505 H CK-MB (CK-2) 16.9 H Myoglobin 6629.0 H Total Protein Albumin 2.9 L Urine Occult Blood Urine RBC Hyaline Casts Crossmatch 05/27/16 05/27/16 05/27/16 17:00 17:45 20:20 WBC RBC Hgb Hct MCHC RDW Neut % (Auto) Lymph % (Auto) [place] % (Auto) Absolute Neuts (auto) ESR PT APTT D-Dimer Quant (PE/DVT) 1010 H Sodium Chloride Carbon Dioxide Anion Gap BUN Creatinine Estimated GFR (MDRD) Glucose Calculated Osmolality Calcium AST Creatine Kinase 2530 H CK-MB (CK-2) 18.4 H Myoglobin 8062.0 H Total Protein Albumin Urine Occult Blood 1+ H Urine RBC 5-10 H Hyaline Casts 10-20 H Crossmatch 05/27/16 05/27/16 05/27/16 23:00 23:00 23:00 WBC RBC Hgb Hct MCHC RDW Neut % (Auto) Lymph % (Auto) [place]ary % (Auto) Absolute Neuts (auto) ESR 123 H PT APTT D-Dimer Quant (PE/DVT) Sodium Chloride Carbon Dioxide Anion Gap BUN Creatinine Estimated GFR (MDRD) Glucose Calculated Osmolality Calcium AST Creatine Kinase 3175 H CK-MB (CK-2) 21.6 H Myoglobin Total Protein Albumin Urine Occult Blood Urine RBC Hyaline Casts Crossmatch See Detail 05/28/16 05/28/16 05/28/16 02:10 05:15 05:15 WBC 15.2 H RBC 2.65 L Hgb 7.5 L D Hct 23.8 L MCHC 31.4 L RDW 19.3 H Neut % (Auto) Lymph % (Auto) Geary % (Auto) Absolute Neuts (auto) ESR PT APTT D-Dimer Quant (PE/DVT) Sodium Chloride 108 H Carbon Dioxide 19 L Anion Gap BUN 94 H Creatinine 3.90 H Estimated GFR (MDRD) 15 L Glucose 117 H Calculated Osmolality 296 H Calcium 6.7 L* AST 111 H Creatine Kinase 3125 H CK-MB (CK-2) 21.5 H Myoglobin 8263.0 H Total Protein 4.4 L Albumin 1.7 L Urine Occult Blood Urine RBC Hyaline Casts Crossmatch 05/28/16 05:15 WBC RBC Hgb Hct MCHC RDW Neut % (Auto) Lymph % (Auto) Geary % (Auto) Absolute Neuts (auto) ESR PT APTT D-Dimer Quant (PE/DVT) Sodium Chloride Carbon Dioxide Anion Gap BUN Creatinine Estimated GFR (MDRD) Glucose Calculated Osmolality Calcium AST Creatine Kinase 3109 H CK-MB (CK-2) 21.0 H Myoglobin Total Protein Albumin Urine Occult Blood Urine RBC Hyaline Casts Crossmatch - Assessment (1) Sepsis Acute A41.9 - SEPSIS, UNSPECIFIED ORGANISM Qualifiers: Sepsis type: sepsis due to unspecified organism Qualified Code(s): A41.9 - Sepsis, unspecified organism Comment/Plan: Continue broad-spectrum antibiotics and aggressive IV hydration. Awaiting cultures follow by surgery (2) Acute renal failure Acute N17.9 - ACUTE KIDNEY FAILURE, UNSPECIFIED Qualifiers: Acute renal failure type: with acute tubular necrosis Qualified Code(s): N17.0 - Acute kidney failure with tubular necrosis Comment/Plan: Avoid any nephrotoxins, continue aggressive IV hydration monitor BMP. (3) Gangrene of lower extremity Acute I96 - GANGRENE, NOT ELSEWHERE CLASSIFIED Comment/Plan: Follow by surgery, will require amputation (4) Anemia Acute D64.9 - ANEMIA, UNSPECIFIED Qualifiers: Anemia type: unspecified type Qualified Code(s): D64.9 - Anemia, unspecified Comment/Plan: Transfuse 2 units of pooled red blood cells today (5) Metabolic encephalopathy Acute G93.41 - METABOLIC ENCEPHALOPATHY Comment/Plan: Continue supportive care. Avoid excessive sedation and anticholinergics (6) PAD (peripheral artery disease) Acute I73.9 - PERIPHERAL VASCULAR DISEASE, UNSPECIFIED Comment/Plan: Continue aspirin. Off Xarelto in preparation for surgery (7) Rhabdomyolysis Acute M62.82 - RHABDOMYOLYSIS Qualifiers: Rhabdomyolysis type: non-traumatic Qualified Code(s): M62.82 - Rhabdomyolysis Comment/Plan: Continue aggressive IV hydration monitor CPK (8) Atrial fibrillation Chronic I48.91 - UNSPECIFIED ATRIAL FIBRILLATION Qualifiers: Atrial fibrillation type: chronic Qualified Code(s): I48.2 - Chronic atrial fibrillation Comment/Plan: Continue beta-lidia ,keep K more than 4 magnesium more than 2. (9) Dehydration Resolved E86.0 - DEHYDRATION Comment/Plan: As above continue aggressive IV hydration. Case Care Discussed with: Patient, Consultants, Nursing Staff, Tuberculosis Specialist Education/Counseling Given To: Patient Education/Counseling Given Regarding: Diagnosis, Treatment, Prognosis, Follow Up Total Time: 65 min . Critical Care: Yes Code: 291
[2016-05-28] MEDS: METOPROLOL TARTRATE 50 MG TAB PO SCH (08:19)
[2016-05-28] MEDS ORDERED: MUPIROCIN 2% OINT 22 GM TUBE NAS SCH (09:00)
[2016-05-28] MEDS ORDERED: METOPROLOL TARTRATE 100 MG TAB PO SCH (09:00)
[2016-05-28] MEDS ORDERED: GREER S GOO TOP SCH (09:00)
[2016-05-28] MEDS ORDERED: Non-Formulary Medication ITEM (Omeprazole [Omeprazole] 20 MG) PO SCH (09:00)
[2016-05-28] MEDS ORDERED: ALLOPURINOL 300 MG TAB PO SCH (09:00)
--- NOTE | 2016-05-28 09:06 | PCM.SURGRO ---
- Subjective Chief Complaint: patient somnolent Hospital Day #: 2 (dry gangrene of five digits of the left foot.) Patient: Reports: Other (Events of overnight discussed with the patient's nurse. ) - Objective / Physical Exam Vital Signs: Temperature: 98.1 F (05/28/16 08:57) HR: 85 (05/28/16 08:57)RR: 18 (05/28/16 08: 57) BP: 93/49 (05/28/16 08:57)Pulse Ox: 100 (05/28/16 08:57) General: Other (Patient somnolent) Respiratory: Normal - CTA, Diminished (diminished at bilateral bases.) Cardiovascular: Regular rate and rhythm Gastrointestinal: Soft, Bowel Sounds. negative: Distended, Tender (No apparent tenderness) Extremities: negative: Swelling, Edema (Swelling that has been present on previous hospitalizations has completely resolved.) Psych/Mental Status: Somnolent Skin: Other (Left foot examined. There is no change in examination as compared to 05/27/16.) Laboratory/Diagnostics Reviewed: 05/28/16 05:15 05/28/16 05:15 - Assessment and Plan (1) PAD (peripheral artery disease) Chronic I73.9 - PERIPHERAL VASCULAR DISEASE, UNSPECIFIED Present on Admission: Yes Comment/Plan: Patient has a long standing history of peripheral arterial disease. This has been a contributing factor to the infection and ischemia of portions of the left foot. (2) Dry gangrene Acute I96 - GANGRENE, NOT ELSEWHERE CLASSIFIED Present on Admission: Yes Comment/Plan: This is a contributing source to the patient's sepsis. Patient will require amputation. I have discussed this with Dr. Vasquez, hospitalist. I will discuss the clinical scenario with the patient's daughter also. The patient is critically ill.
[2016-05-28] MEDS: MUPIROCIN 2% OINT 22 GM TUBE NAS SCH ×2 (10:09→20:16)
[2016-05-28] MEDS: COLLAGENASE OINTMENT 30 GM TUBE TOP SCH (10:09)
[2016-05-28 10:41] LABS: CPKMB 22.8 ng/mL (0-4.5); CPKMB RELATIVE INDEX 0.7 (0.0-2.2)
--- NOTE | 2016-05-28 10:42 | PCM.SURGRO ---
The patient's clinical scenario and current status of the gangrene of the five digits of the left foot were discussed with the patient's brother, Lico, in person. I discussed the current treatment plan. All questions were answered. He voiced understanding and agreement with the plan.
--- NOTE | 2016-05-28 11:41 | PCM.SURGRO ---
05/28/16 at 1135 am. I contacted the nurse at station 1 at [facility] and [facility] ([phone]) regarding the last dose of Xarelto. The patient' s last dose was on 05/27/16 at 0900. This places the patient at high risk of bleeding from the surgical site and inability for spinal anesthesia to be performed. The patient had a large source of infection at a right buttock/ rectal abscess. This was incised and drained on 05/27/16 in the evening. We will continue to monitor this left foot. We will obtain noninvasive vascular studies to evaluate for level of ability to heal. Further recommendations pending the results of the vascular studies.
[2016-05-28] MEDS: Linezolid 600 mg/300 ml Premix 600 MG/300 ML RTU IV SCH ×2 (11:58→23:59)
[2016-05-28] MEDS: PANTOPRAZOLE 40 MG VIAL IV SCH (11:58)
[2016-05-28] MEDS ORDERED: Vaccine Screening Complete SCH (12:00)
--- NOTE | 2016-05-28 16:03 | PCM.SURGRO ---
05/28/16 at 1545. Patient's right and left foot examined. No purulent drainage from areas of gangrene of the left foot. No fluctuant masses. Less edema. Vital signs noted. Per nursing staff, patient has been awake two to three times today. No evidence of abscess of the left foot or toes. The patient will require four days off of the Xarelto prior to any type of spinal anesthesia and surgical intervention. Noninvasive testing has been ordered. We are unable to do CT angiography as the patient has elevated BUN and Cr. The patient has multiple sources of infection. Rectal abscess has been drained and packing in place. Cellulitis of bilateral lower extremities is currently being treated with broad spectrum intravenous antibiotics. We will plan for continued supportive care and plan for amputation on 05/31/16. I will discuss with Dr. Lisa who is familiar with the patient and has treated the patient in the past. I discussed the clinical scenario with the patient's sister, Rhonda and brother, Willy. I discussed the current treatment plan. All questions were answered. They voiced understanding and agreement.
--- NOTE | 2016-05-28 16:59 | DIRPT ---
CLINICAL DATA: Bilateral lower extremity cellulitis with blacked toes. EXAM: RIGHT FOOT - 2 VIEW COMPARISON: 05/14/2011 FINDINGS: Limited study due to overlapping osseous structures from rotation and patient pain. There is no evidence of osteomyelitis or acute fracture. No spreading soft tissue gas or evidence of opaque foreign body. Arterial calcification diffusely. IMPRESSION: 1. Limited study due to patient condition and positioning. 2. No evidence of foot osteomyelitis. Electronically Signed By: Librado Muñoz M.D. On: 05/28/2016 16:56
--- NOTE | 2016-05-28 17:26 | DIRPT ---
CLINICAL DATA: Peripheral arterial disease with gangrene of the left foot. EXAM: LEFT FOOT - 2 VIEW COMPARISON: 05/14/2011 FINDINGS: Limited study due to overlapping osseous structures related to patient immobility and pain. There is linear lucencies over the dorsal foot and distal anterior farrell consistent with gas. There is a bandage in this region, but this does not explain the extent or depth of gas. No evidence of osteomyelitis. No fracture or malalignment. Diffuse atherosclerosis. These results were called by telephone at the time of interpretation on 05/28/2016 at 5:[address] NIRAJ MATSON DO, who verbally acknowledged these results. IMPRESSION: 1. Soft tissue gas in the dorsal foot and distal anterior farrell concerning for necrotizing infection. There is a bandage in the region which could create artifact, and CT could confirm. 2. No convincing osteomyelitis, sensitivity limited by osteopenia and positioning. Electronically Signed By: Librado Muñoz M.D. On: 05/28/2016 17:24
[2016-05-28] MEDS ORDERED: SIMVASTATIN 10 MG TAB PO SCH (21:00)
[2016-05-29] MEDS: CHLORHEXIDINE (HIBICLENS) 4 OZ BOTTLE TOP SCH ×2 (02:24→21:42)
[2016-05-29] MEDS: METOPROLOL TARTRATE 50 MG TAB PO SCH ×3 (02:24→21:41)
[2016-05-29] MEDS: NS 1,000 ML IV SCH ×5 (02:35→23:32)
[2016-05-29] MEDS: PIPERACILLIN AND TAZOBACTAM 3.375 GM in D5W 100 ML IV SCH (04:04)
[2016-05-29 07:01] LABS: AUTOMATED BASOPHIL 0.2 % (0-2); AUTOMATED EOSINOPHIL 0.8 % (0-5); AUTOMATED LYMPH 8.1 % (17-44); AUTOMATED MONOCYTE 11.5 % (3-10); AUTOMATED NEUTROPHIL 79.4 % (45-76); MPV 7.7 fL (7.4-10.4)
[2016-05-29 07:47] LABS: BLOOD UREA NITROGEN 81 MG/DL (9-20); CALCIUM 7.2 MG/DL (8.4-10.2); CALCULATED OSMOLALITY 297 MOs/Kg (270-290); CHLORIDE 113 mEq/L (98-107); GLUCOSE 102 MG/DL (70-99); SODIUM LEVEL 142 mEq/L (137-146)
[2016-05-29] MEDS: ALLOPURINOL 100 MG TAB PO SCH (07:56)
[2016-05-29] MEDS: MUPIROCIN 2% OINT 22 GM TUBE NAS SCH ×2 (07:57→21:42)
[2016-05-29] MEDS: COLLAGENASE OINTMENT 30 GM TUBE TOP SCH (07:57)
[2016-05-29] MEDS ORDERED: FLU VACCINE (Afluria) 0.5 ML DOSE IM ONE (08:00)
--- NOTE | 2016-05-29 08:05 | GENMEDPROG ---
Subjective Note: Patient in bed responsive and more interactive today. Still acutely ill and toxic-appearing. Denies and difficulties breathing cough or phlegm production. P.o. intake very poor. Notes Reviewed: Yes Events from last night noted and discussed with Clinical Staff Current Medication List: Reviewed Currently: Reports: Cough, CLAYTON, Sputum, Reflux Sx DVT Prophylaxis: Yes - Physical Examination Vital Signs and I&O: Last Vital Signs Temp 98.6 F 05/29/16 07:00 Pulse 94 05/29/16 07:00 Resp 18 05/29/16 07:00 BP 89/47 L 05/29/16 07:00 Pulse Ox 96 05/29/16 07:00 Oxygen Pulse Oxygen Saturation 96 O2 Device Room Air Oxygen Flow Rate Fraction of Inspired Oxygen ( FIO2) Intake & Output 05/26/16 05/27/16 05/28/16 05/29/16 23:59 23:59 23:59 23:59 Intake Total 2600 6031 2532 Output Total 400 900 Balance 2200 5131 2532 Patient's weight 122.64 kg 99.382 kg 99.382 kg General: Alert, Oriented x3, Cooperative, Moderate distress, Other (Patient somnolent) HEENT: Normal, PERRLA, EOMI, Anicteric Sclera Neck: Non-tender, Limited range of motion Lymphatics: Normal Respiratory: Normal - CTA, Diminished (diminished at bilateral bases.), Rhonchi Cardiovascular: Regular rate and rhythm, Normal S1, Normal S2, Murmurs GI: Normal bowel sounds, Soft, Non tender, No hepatospenomegaly, No masses, Obese Extremities/Musculoskeletal: Other (Necrotic toes). negative: Swelling, Edema ( Swelling that has been present on previous hospitalizations has completely resolved.) Skin: No rashes, Other (Left foot examined. There is no change in examination as compared to 05/27/16.) Neurological: Normal speech, Normal tone, Cranial nerves 3-12 NL Psych/Mental Status: Anxious, Somnolent Lab/DI/Studies Reviewed: Allergies No Known Allergies Allergy (Verified 12/09/15 15:58) Last Vital Signs Temp 98.6 F 05/29/16 07:00 Pulse 94 05/29/16 07:00 Resp 18 05/29/16 07:00 BP 89/47 L 05/29/16 07:00 Pulse Ox 96 05/29/16 07:00 05/29/16 06:25 05/29/16 06:25 Abnormal Lab Results 05/27/16 05/28/16 05/29/16 23:00 08:45 06:25 WBC RBC Hgb Hct MCHC RDW Neut % (Auto) Lymph % (Auto) [place] % (Auto) Absolute Neuts (auto) Chloride 113 H Carbon Dioxide 20 L BUN 81 H Creatinine 3.20 H Estimated GFR (MDRD) 19 L Glucose 102 H Calculated Osmolality 297 H Calcium 7.2 L Creatine Kinase 3344 H CK-MB (CK-2) 22.8 H Crossmatch See Detail 05/29/16 06:25 WBC 13.7 H RBC 3.14 L Hgb 9.0 L D Hct 28.1 L MCHC 32.1 L RDW 18.3 H Neut % (Auto) 79.4 H Lymph % (Auto) 8.1 L [place] % (Auto) 11.5 H Absolute Neuts (auto) 10.82 H Chloride Carbon Dioxide BUN Creatinine Estimated GFR (MDRD) Glucose Calculated Osmolality Calcium Creatine Kinase CK-MB (CK-2) Crossmatch Microbiology 05/27/16 21:37 Nares Nasal Screen MRSA (PCR)(ALBA) - Final POSITIVE for MRSA DNA -------- In the absence of signs/symptoms of infection, nasal colonization with MRSA is not an indication of vancomycin therapy. Vancomycin is NOT EFFECTIVE for eradication of MRSA nasal colonization. Patient Name: CLAUDY LARRY LOC: ICU : 1945 AGE: 71 Order Date:05/28/16 Date of Service: Report # [id number] Ord Physician: Niraj Matson DO Exam # [id number] Emergency Physician: Juan Mccoy DO Exam(s): [id number] RAD/DG FOOT 2V-L CLINICAL DATA: Peripheral arterial disease with gangrene of the left foot. EXAM: LEFT FOOT - 2 VIEW COMPARISON: 05/14/2011 FINDINGS: Limited study due to overlapping osseous structures related to patient immobility and pain. There is linear lucencies over the dorsal foot and distal anterior farrell consistent with gas. There is a bandage in this region, but this does not explain the extent or depth of gas. No evidence of osteomyelitis. No fracture or malalignment. Diffuse atherosclerosis. These results were called by telephone at the time of interpretation on 05/28/2016 at 5:[address] NIRAJ MATSON DO, who verbally acknowledged these results. IMPRESSION: 1. Soft tissue gas in the dorsal foot and distal anterior farrell concerning for necrotizing infection. There is a bandage in the region which could create artifact, and CT could confirm. 2. No convincing osteomyelitis, sensitivity limited by osteopenia and positioning. Electronically Signed By: Librado Muñoz M.D. On: 05/28/2016 17:24 Patient Name: CLAUDY LARRY LOC: ICU : 1945 AGE: 71 Order Date:05/28/16 Date of Service: Report # [id number] Ord Physician: Niraj Matson DO Exam # [id number] Emergency Physician: Juan Mccoy DO Exam(s): [id number] RAD/DG FOOT 2V-R CLINICAL DATA: Bilateral lower extremity cellulitis with blacked toes. EXAM: RIGHT FOOT - 2 VIEW COMPARISON: 05/14/2011 FINDINGS: Limited study due to overlapping osseous structures from rotation and patient pain. There is no evidence of osteomyelitis or acute fracture. No spreading soft tissue gas or evidence of opaque foreign body. Arterial calcification diffusely. IMPRESSION: 1. Limited study due to patient condition and positioning. 2. No evidence of foot osteomyelitis. Electronically Signed By: Librado Muñoz M.D. On: 05/28/2016 16:56 - Assessment (1) Sepsis Acute A41.9 - SEPSIS, UNSPECIFIED ORGANISM Qualifiers: Sepsis type: sepsis due to unspecified organism Qualified Code(s): A41.9 - Sepsis, unspecified organism Comment/Plan: Continue broad-spectrum and IV antibiotics and IV fluids. Monitor hemodynamics in ICU setting. (2) Acute renal failure Acute N17.9 - ACUTE KIDNEY FAILURE, UNSPECIFIED Qualifiers: Acute renal failure type: with acute tubular necrosis Qualified Code(s): N17.0 - Acute kidney failure with tubular necrosis Comment/Plan: Avoid any nephrotoxins, continue aggressive IV hydration monitor BMP. Creatinine down to 3.2 today. (3) Gangrene of lower extremity Acute I96 - GANGRENE, NOT ELSEWHERE CLASSIFIED Comment/Plan: Follow by surgery, will require amputation (4) Anemia Acute D64.9 - ANEMIA, UNSPECIFIED Qualifiers: Anemia type: unspecified type Qualified Code(s): D64.9 - Anemia, unspecified Comment/Plan: Improved after blood transfusion.. Monitor counts transfuse as needed indicated (5) Metabolic encephalopathy Acute G93.41 - METABOLIC ENCEPHALOPATHY Comment/Plan: Continue supportive care. Avoid excessive sedation and anticholinergics. Mentation improved today (6) PAD (peripheral artery disease) Acute I73.9 - PERIPHERAL VASCULAR DISEASE, UNSPECIFIED Comment/Plan: Continue aspirin. Off Xarelto in preparation for surgery (7) Rhabdomyolysis Acute M62.82 - RHABDOMYOLYSIS Qualifiers: Rhabdomyolysis type: non-traumatic Qualified Code(s): M62.82 - Rhabdomyolysis Comment/Plan: Continue aggressive IV hydration monitor CPK (8) Atrial fibrillation Chronic I48.91 - UNSPECIFIED ATRIAL FIBRILLATION Qualifiers: Atrial fibrillation type: chronic Qualified Code(s): I48.2 - Chronic atrial fibrillation Comment/Plan: Continue beta-lidia ,keep K more than 4 magnesium more than 2. (9) Dehydration Resolved E86.0 - DEHYDRATION Comment/Plan: As above continue aggressive IV hydration. (10) Rectal abscess Acute Comment/Plan: Status post I&D by surgery. Continue IV antibiotics and local care Case Care Discussed with: Patient, Consultants, Nursing Staff, Astro Technician Education/Counseling Given To: Patient Education/Counseling Given Regarding: Diagnosis, Treatment, Prognosis, Follow Up Total Time: 55 min . Critical Care: Yes Code: 291
[2016-05-29] MEDS ORDERED: Albuterol/Ipratropium Neb 3 ML NEB NEB PRN (08:11)
--- NOTE | 2016-05-29 09:44 | PCM.SURGRO ---
- Subjective Patient: Reports: Other (Patient denies pain) - Objective / Physical Exam Vital Signs: Temperature: 98.6 F (05/29/16 07:00) HR: 99 (05/29/16 08:00)RR: 18 (05/29/16 07: 00) BP: 90/49 (05/29/16 08:00)Pulse Ox: 98 (05/29/16 08:00) Respiratory: Normal - CTA Cardiovascular: Regular rate and rhythm Gastrointestinal: Soft, Bowel Sounds. negative: Distended, Tender Extremities: Other (Left lower extremity toes are black and necrotic, 2nd toe on the right foot is black and necrotic) Laboratory/Diagnostics Reviewed: Laboratory Results - last 24 hr 05/27/16 05/28/16 05/29/16 23:00 08:45 06:25 WBC RBC Hgb Hct MCV MCH MCHC RDW Plt Count MPV Neut % (Auto) Lymph % (Auto) Delta % (Auto) Eos % (Auto) Baso % (Auto) Absolute Neuts (auto) Absolute Lymphs (auto) Sodium 142 Potassium 3.5 Chloride 113 H Carbon Dioxide 20 L Anion Gap 13 BUN 81 H Creatinine 3.20 H Estimated GFR (MDRD) 19 L Glucose 102 H Calculated Osmolality 297 H Calcium 7.2 L Magnesium 2.20 Creatine Kinase 3344 H CK-MB (CK-2) 22.8 H CK-MB (CK-2) Rel Index 0.7 Blood Type O POSITIVE Antibody Screen Negative Crossmatch See Detail 05/29/16 06:25 WBC 13.7 H RBC 3.14 L Hgb 9.0 L D Hct 28.1 L MCV 90 MCH 28.8 MCHC 32.1 L RDW 18.3 H Plt Count 174 MPV 7.7 Neut % (Auto) 79.4 H Lymph % (Auto) 8.1 L Delta % (Auto) 11.5 H Eos % (Auto) 0.8 Baso % (Auto) 0.2 Absolute Neuts (auto) 10.82 H Absolute Lymphs (auto) 1.10 Sodium Potassium Chloride Carbon Dioxide Anion Gap BUN Creatinine Estimated GFR (MDRD) Glucose Calculated Osmolality Calcium Magnesium Creatine Kinase CK-MB (CK-2) CK-MB (CK-2) Rel Index Blood Type Antibody Screen Crossmatch - Assessment and Plan (1) Gangrene of lower extremity Acute I96 - GANGRENE, NOT ELSEWHERE CLASSIFIED Present on Admission: Yes Comment/Plan: Patient will likely require amputation of the left lower extremity. Consider noninvasive vascular studies to determine the most appropriate site of amputation. In addition he may need further intervention from a surgical perspective from his right 2nd toe. Continue medical management of the multiple comorbidities in this patient.
--- NOTE | 2016-05-29 11:27 | DIRPT ---
CLINICAL DATA: Respiratory distress EXAM: PORTABLE CHEST 1 VIEW COMPARISON: 05/27/2016 FINDINGS: Low lung volumes. Vascular crowding noted. Basilar atelectasis. RIGHT PICC line unchanged. IMPRESSION: No significant change. Low lung volumes and bibasilar atelectasis. Electronically Signed By: Mitch Singh M.D. On: 05/29/2016 11:24
[2016-05-29] MEDS: MORPHINE 2 MG/ML INJECTION IV PRN ×2 (12:49→18:08)
[2016-05-29] MEDS: PANTOPRAZOLE 40 MG VIAL IV SCH (13:15)
[2016-05-29] MEDS: Linezolid 600 mg/300 ml Premix 600 MG/300 ML RTU IV SCH ×2 (13:19→23:32)
[2016-05-29] MEDS: PIPERACILLIN AND TAZOBACTAM 4.5 GM in D5W 100 ML IV SCH ×2 (14:35→19:26)
[2016-05-29] MEDS: Albuterol/Ipratropium Neb 3 ML NEB NEB SCH ×2 (15:35→23:55)
[2016-05-29] MEDS: OXYCODONE HCL 5 MG TABLET PO PRN (19:27)
[2016-05-29] MEDS: SENNA CONCENTRATE TAB PO SCH (21:41)
[2016-05-30] MEDS: NS 1,000 ML IV SCH ×5 (03:39→20:19)
[2016-05-30] MEDS: PIPERACILLIN AND TAZOBACTAM 4.5 GM in D5W 100 ML IV SCH ×3 (03:40→20:07)
[2016-05-30] MEDS: MORPHINE 2 MG/ML INJECTION IV PRN ×3 (03:55→14:47)
[2016-05-30 04:15] LABS: AUTOMATED BASOPHIL 0.2 % (0-2); AUTOMATED LYMPH 6.3 % (17-44); AUTOMATED MONOCYTE 8.5 % (3-10); MPV 7.8 fL (7.4-10.4)
[2016-05-30 04:45] LABS: BLOOD UREA NITROGEN 68 MG/DL (9-20); CALCIUM 7.3 MG/DL (8.4-10.2); CALCULATED OSMOLALITY 289 MOs/Kg (270-290); CHLORIDE 113 mEq/L (98-107); GLUCOSE 101 MG/DL (70-99); SODIUM LEVEL 140 mEq/L (137-146)
[2016-05-30] MEDS: MUPIROCIN 2% OINT 22 GM TUBE NAS SCH ×2 (07:42→20:07)
[2016-05-30] MEDS: COLLAGENASE OINTMENT 30 GM TUBE TOP SCH (07:43)
[2016-05-30] MEDS: METOPROLOL TARTRATE 50 MG TAB PO SCH ×2 (07:43→20:08)
[2016-05-30] MEDS ORDERED: FLU VACCINE (Afluria) 0.5 ML DOSE IM ONE (08:00)
--- NOTE | 2016-05-30 08:16 | PCM.SURGRO ---
- Subjective Patient: Reports: No new complaints - Objective / Physical Exam Vital Signs: Temperature: 97.9 F (05/30/16 07:00) HR: 94 (05/30/16 07:00)RR: 18 (05/30/16 07: 00) BP: 127/57 (05/30/16 07:00)Pulse Ox: 97 (05/30/16 07:00) General: Other (More awake today) Respiratory: Normal - CTA Cardiovascular: Regular rate and rhythm Gastrointestinal: Soft, Bowel Sounds. negative: Distended, Tender Extremities: Other (Left toes are black with serosanguineous drainage, moderately tender. Right 2nd toe has some duskiness with black eschar on it with serosanguineous drainage.) Laboratory/Diagnostics Reviewed: Laboratory Results - last 24 hr 05/30/16 05/30/16 03:53 03:53 WBC 15.2 H RBC 3.12 L Hgb 9.0 L Hct 28.0 L MCV 90 MCH 28.8 MCHC 32.1 L RDW 18.7 H Plt Count 162 MPV 7.8 Neut % (Auto) 84.0 H Lymph % (Auto) 6.3 L [place] % (Auto) 8.5 Eos % (Auto) 1.0 Baso % (Auto) 0.2 Absolute Neuts (auto) 12.77 H Absolute Lymphs (auto) 0.91 Sodium 140 Potassium 3.1 L Chloride 113 H Carbon Dioxide 19 L Anion Gap 11 BUN 68 H Creatinine 2.50 H Estimated GFR (MDRD) 26 L Glucose 101 H Calculated Osmolality 289 Calcium 7.3 L Magnesium 2.00 - Assessment and Plan (1) Gangrene of lower extremity Acute I96 - GANGRENE, NOT ELSEWHERE CLASSIFIED Present on Admission: Yes Comment/Plan: His left toes do not appear to be salvageable. He may ultimately benefit from amputation. Consider obtaining noninvasive vascular studies (segmental pressures) to determine the best site for any amputation that would heal appropriately. He may ultimately need surgical therapy for his right 2nd toe as well. Continue medical management of his comorbid conditions. Continue to pack the perirectal abscess area as ordered.
--- NOTE | 2016-05-30 08:19 | GENMEDPROG ---
Subjective Note: Patient in bed, alert responsive more interactive today. Still acutely ill but not toxic-appearing. Patient still reports fair amount of pain involving both lower extremities. Tolerating diet. Notes Reviewed: Yes Events from last night noted and discussed with Clinical Staff Current Medication List: Reviewed Currently: Reports: Cough, CLAYTON, Sputum, Reflux Sx DVT Prophylaxis: Yes - Physical Examination Vital Signs and I&O: Last Vital Signs Temp 97.9 F 05/30/16 07:00 Pulse 90 05/30/16 08:00 Resp 18 05/30/16 07:00 BP 109/58 L 05/30/16 08:00 Pulse Ox 96 05/30/16 08:00 Oxygen Pulse Oxygen Saturation 96 O2 Device Nasal Cannula Oxygen Flow Rate 2 Fraction of Inspired Oxygen ( FIO2) Intake & Output 05/27/16 05/28/16 05/29/16 05/30/16 23:59 23:59 23:59 23:59 Intake Total 2600 6031 7267 1507 Output Total 400 900 850 400 Balance 2200 5131 6417 1107 Patient's weight 122.64 kg 99.382 kg 99.382 kg 100.38 kg General: Alert, Cooperative, Mild distress, Other (More awake today) HEENT: Normal, PERRLA, EOMI, Anicteric Sclera Neck: Non-tender, Normal Trachea alignment, No Thyromegaly palpable, Limited range of motion Lymphatics: Normal Respiratory: Normal - CTA, Diminished, Rhonchi Cardiovascular: Regular rate, Regular rate and rhythm, Normal S1, Normal S2, Murmurs GI: Normal bowel sounds, Soft, Non tender, No hepatospenomegaly, No masses, Obese Extremities/Musculoskeletal: Other (Left toes are black with serosanguineous drainage, moderately tender. Right 2nd toe has some duskiness with black eschar on it with serosanguineous drainage.) Skin: No breakdown Neurological: Normal speech, Cranial nerves 3-12 NL Psych/Mental Status: Anxious Lab/DI/Studies Reviewed: Last Vital Signs Temp 98.4 F 05/30/16 13:00 Pulse 96 05/30/16 15:00 Resp 22 05/30/16 15:00 BP 99/56 L 05/30/16 15:00 Pulse Ox 98 05/30/16 15:00 05/30/16 03:53 05/30/16 03:53 - Assessment (1) Sepsis Acute A41.9 - SEPSIS, UNSPECIFIED ORGANISM Qualifiers: Sepsis type: sepsis due to unspecified organism Qualified Code(s): A41.9 - Sepsis, unspecified organism Comment/Plan: Continue broad-spectrum and IV antibiotics and IV fluids. Monitor hemodynamics in ICU setting. (2) Acute renal failure Acute N17.9 - ACUTE KIDNEY FAILURE, UNSPECIFIED Qualifiers: Acute renal failure type: with acute tubular necrosis Qualified Code(s): N17.0 - Acute kidney failure with tubular necrosis Comment/Plan: Avoid any nephrotoxins, continue aggressive IV hydration monitor BMP. Creatinine down to 2.5 today (3) Gangrene of lower extremity Acute I96 - GANGRENE, NOT ELSEWHERE CLASSIFIED Comment/Plan: Follow by surgery, for amputationin am (4) Anemia Acute D64.9 - ANEMIA, UNSPECIFIED Qualifiers: Anemia type: unspecified type Qualified Code(s): D64.9 - Anemia, unspecified Comment/Plan: Improved after blood transfusion.. Monitor counts transfuse as needed indicated (5) Metabolic encephalopathy Acute G93.41 - METABOLIC ENCEPHALOPATHY Comment/Plan: Continue supportive care. Avoid excessive sedation and anticholinergics. Mentation improved today (6) PAD (peripheral artery disease) Acute I73.9 - PERIPHERAL VASCULAR DISEASE, UNSPECIFIED Comment/Plan: Continue aspirin. Off Xarelto in preparation for surgery (7) Rhabdomyolysis Acute M62.82 - RHABDOMYOLYSIS Qualifiers: Rhabdomyolysis type: non-traumatic Qualified Code(s): M62.82 - Rhabdomyolysis Comment/Plan: Continue aggressive IV hydration monitor CPK (8) Atrial fibrillation Chronic I48.91 - UNSPECIFIED ATRIAL FIBRILLATION Qualifiers: Atrial fibrillation type: chronic Qualified Code(s): I48.2 - Chronic atrial fibrillation Comment/Plan: Continue beta-lidia ,keep K more than 4 magnesium more than 2. (9) Dehydration Resolved E86.0 - DEHYDRATION Comment/Plan: As above continue aggressive IV hydration. (10) Rectal abscess Acute Comment/Plan: Status post I&D by surgery. Continue IV antibiotics and local care (11) Toxic metabolic encephalopathy Acute G92 - TOXIC ENCEPHALOPATHY Comment/Plan: Continue supportive care , mentation improving (12) Hypokalemia Acute E87.6 - HYPOKALEMIA Comment/Plan: Replace and monitor Case Care Discussed with: Patient, Consultants, Nursing Staff, Shoe Designer Education/Counseling Given To: Patient Education/Counseling Given Regarding: Diagnosis, Treatment, Prognosis, Follow Up Total Time: 60 min . Critical Care: Yes Code: 291
[2016-05-30] MEDS: KCL 20 mEq/100 ml Premix Run 20 MEQ/100 ML RTU IV SCH ×2 (09:18→10:29)
[2016-05-30] MEDS: Albuterol/Ipratropium Neb 3 ML NEB NEB SCH ×3 (09:45→23:53)
[2016-05-30] MEDS: PANTOPRAZOLE 40 MG VIAL IV SCH (11:27)
[2016-05-30] MEDS: Linezolid 600 mg/300 ml Premix 600 MG/300 ML RTU IV SCH ×2 (12:10→23:15)
[2016-05-30] MEDS: CHLORHEXIDINE (HIBICLENS) 4 OZ BOTTLE TOP SCH (20:07)
[2016-05-30] MEDS: SENNA CONCENTRATE TAB PO SCH (20:08)
[2016-05-30] MEDS: OXYCODONE HCL 5 MG TABLET PO PRN (20:19)
[2016-05-31] MEDS: NS 1,000 ML IV SCH ×3 (03:46→20:13)
[2016-05-31] MEDS: PIPERACILLIN AND TAZOBACTAM 4.5 GM in D5W 100 ML IV SCH ×3 (03:46→21:54)
[2016-05-31 05:58] LABS: BLOOD UREA NITROGEN 61 MG/DL (9-20); CALCIUM 7.4 MG/DL (8.4-10.2); CALCULATED OSMOLALITY 290 MOs/Kg (270-290); CHLORIDE 113 mEq/L (98-107); GLUCOSE 99 MG/DL (70-99); SODIUM LEVEL 142 mEq/L (137-146)
[2016-05-31 06:24] VITALS: BMI 32.7
[2016-05-31] MEDS ORDERED: FLU VACCINE (Afluria) 0.5 ML DOSE IM ONE (08:00)
[2016-05-31] MEDS ORDERED: FUROSEMIDE 40 MG/4 ML VIAL IV ONE (08:30)
[2016-05-31] MEDS: Albuterol/Ipratropium Neb 3 ML NEB NEB SCH ×3 (08:59→23:03)
[2016-05-31 09:30] LABS: PARTIAL THROMB. TIME 36.9 SEC (22-35); PT-INR 1.2
[2016-05-31] MEDS: MORPHINE 2 MG/ML INJECTION IV PRN ×2 (09:32→10:50)
--- NOTE | 2016-05-31 09:46 | PCM.SURGRO ---
05/31/16 at 0940. Patient's lower extremities examined. No change in examination. We will plan for left below the knee amputation and right foot, second digit incision and drainage. The indications, benefits and risks associated with the operation were discussed with the patient. All questions were answered. Informed consent was obtained. I contacted the patient's sister , Rhonda White, at [phone]. I discussed with her the proposed operations and associated indications, benefits and risks. She voiced understanding and agreement. All questions were answered.
[2016-05-31] MEDS: METOPROLOL TARTRATE 50 MG TAB PO SCH ×2 (09:58→21:55)
[2016-05-31] MEDS: COLLAGENASE OINTMENT 30 GM TUBE TOP SCH (10:04)
[2016-05-31] MEDS: ALLOPURINOL 100 MG TAB PO SCH (10:04)
[2016-05-31] MEDS: MUPIROCIN 2% OINT 22 GM TUBE NAS SCH (10:05)
--- NOTE | 2016-05-31 12:00 | DIRPT ---
CLINICAL DATA: 71-year-old male with a history of bilateral lower extremity gangrene Cardiovascular risk factors include smoking, hypertension, hyperlipidemia, known vascular disease. EXAM: NONINVASIVE PHYSIOLOGIC VASCULAR STUDY OF BILATERAL LOWER EXTREMITIES TECHNIQUE: Noninvasive exam attempted, with attempted ankle-brachial index and segmental Doppler. COMPARISON: 12/10/2015 FINDINGS: Right ANGELITO: Not acquired. Left ANGELITO: Not acquired, with no signal sampled. Right Lower Extremity: Segmental Doppler of the right lower extremity dorsalis pedis demonstrates abnormal waveform. Left Lower Extremity: No waveforms identified of the left lower extremity on this survey. IMPRESSION: Limited noninvasive arterial examination given the patient's extensive gangrene and the inability to record compressible and Doppler waveforms at the ankles. Cross-sectional imaging with CTA runoff may be considered if anatomic evaluation of iliac patency or femoral popliteal patency is of concern. Signed, Moises Flores, [facility] Electronically Signed By: Moises Flores D.O. On: 05/31/2016 11:57
[2016-05-31] MEDS ORDERED: LABETALOL 20 MG/4 ML SYRINGE IV PRN (12:03)
[2016-05-31] MEDS ORDERED: ONDANSETRON HCL 4 MG ODT TAB PO PRN (12:03)
[2016-05-31] MEDS ORDERED: hydrALAZINE 20 MG/ML VIAL IV PRN (12:03)
[2016-05-31] MEDS ORDERED: FENTANYL 100 MCG/2 ML VIAL IV PRN ×2 (12:03)
[2016-05-31] MEDS ORDERED: HYDROmorphone 1 MG INJECTION IV PRN ×2 (12:03)
[2016-05-31] MEDS ORDERED: ONDANSETRON HCL 4 MG/2 ML VIAL IV PRN (12:03)
[2016-05-31] MEDS ORDERED: MEPERIDINE 25 MG/ML TUBEX IV PRN (12:03)
--- NOTE | 2016-05-31 12:17 | HIM.ANES ---
Anesthesia Evaluation & Plan - Focused Review of Systems Cardiac History: Yes: Hx Hypertension, Hx Cardiac Catheterization (Cardiac stent 2011), Hx Afib/Aflutter (took self off Xarelto about 1 mth ago), Hx Cardiac Disorders, Hx Abnormal Cholesterol/Hyperlipidemia, Hx Congestive Heart Failure (Chronic diastolic. EF 50%.) No: Hx Deep Vein Thrombosis HEENT: Yes: Hx Vision Problem (wears glasses), Other HEENT Problems Respiratory: Yes: Hx Emphysema Gastrointestinal: Yes: Hx Gastrointestinal Disorders, Hx Chronic Constipation, Hx Colonoscopy Genitourinary: Yes: Hx Renal Disease (History of acute kidney injury and hyperkalemia that resolved) Neurological/Musculoskeletal: Yes: Hx Peripheral Neuropathy (bilat feet "burn" on the bottom) No: Hx Neurological Disorders Psychological: No Hx Depression, No Hx Mental/Emotional Disorders Endocrine: Yes: Hx Insulin Dependent Diabetes Blood/Autoimmune: No: Hx Blood Transfusions, Hx AIDS, Hx Hepatitis (type) Smoking Status: Former smoker Past Social History: Denies: Alcohol Use, Substance Use Disorder Hx Chest Xray (date): Yes (05/27/16) Surgical History: Yes: Knee (right knee-unsure what kind), Other (Knee) - Focused Physical Exam NPO since: midnight Mallampati: Class II Thyromental Distance: Greater than 3 Neck: Full Range of Motion Dental: Normal - no significant findings Cardiovascular/Chest: Normal Respiratory: Lungs clear Any problems with anesthesia, including nausea and vomiting?: No Beta Ale given (if appropriate): N/A Other: Problem List Problem Status Onset Acute on chronic renal failure Acute Anemia Acute Dry gangrene Acute Gangrene of lower extremity Acute Hypokalemia Acute Metabolic encephalopathy Acute PAD (peripheral artery disease) Acute Rectal abscess Acute Rhabdomyolysis Acute Sepsis Acute Toxic metabolic encephalopathy Acute Acute renal failure Acute Acute renal failure (ARF) Acute Cellulitis and abscess of foot Acute Diastolic CHF Acute Elevated brain natriuretic peptide (BNP) level Acute Hyperkalemia Acute Atrial fibrillation Chronic PAD (peripheral artery disease) Chronic Peripheral edema Chronic Acute coronary syndrome Suspected PT/PTT/INR/ PT 12.8 SEC (9.2-11.2) H 05/31/16 05:12 INR 1.2 05/31/16 05:12 APTT 36.9 SEC (22-35) H 05/31/16 05:12 CBC/BMP/Other 05/31/16 05:12 05/31/16 05:12 Allergies Allergy/AdvReac Type Severity Reaction Status Date / Time No Known Allergies Allergy Verified 12/09/15 15:58 Home Medications Medication Instructions Recorded Last Taken Type Rivaroxaban [Xarelto] 20 mg PO DAILY 09/20/13 05/27/16 History Aspirin (Enteric Coated) [Halfprin] 81 mg PO DAILY #30 12/15/15 05/27/16 Rx Metoprolol Tartrate [Lopressor] 100 mg PO BID #60 12/15/15 05/26/16 Rx Simvastatin [Zocor] 10 mg PO HS #30 12/15/15 05/26/16 Rx Acetaminophen [Mapap] 650 mg PO Q6H PRN 05/27/16 Unknown History Allopurinol [Zyloprim] 300 mg PO DAILY 05/27/16 05/27/16 History Cefepime HCl 2 gm IV DAILY 05/27/16 Unknown History Collagenase [Santyl] 2 gm TOP DAILY 05/27/16 05/26/16 History Armstrong's Goo 2 gm TOP BID 05/27/16 05/26/16 History HydrOXYzine HCl (Antihistamine 25 mg PO Q8H PRN 05/27/16 05/27/16 History [Atarax] Nystatin 1 gm TOP DAILY PRN 05/27/16 05/26/16 History Omeprazole 20 mg PO DAILY 05/27/16 05/26/16 History Oxycodone Immediate Release 5 mg PO Q6 PRN 05/27/16 05/27/16 History [Oxycodone Immediate Release (OxyIR)] Height and Weight Patient's height 5 ft 9 in Patient's weight 100.561 kg Weight (Calculated Kilograms) 100.561 BMI 32.7 Vital Signs Temperature 97 F L 05/31/16 11:45 Pulse Rate 88 05/31/16 11:45 Respiratory Rate 22 05/31/16 12:04 Blood Pressure 98/55 L 05/31/16 12:04 Pulse Oxygen Saturation 98 05/31/16 12:04 - Anesthetic Plan Anesthesia Type: Spinal ASA Class: 4, E -: I have examined this patient and reviewed the medical record. The patient has been assessed prior to anesthesia. Risks and benefits of anesthesia and anesthetic technique options have been discussed and all questions answered. The patient accepts the risk and desires me to proceed with the planned anesthetic.
[2016-05-31] MEDS ORDERED: Medication Special Instructions SCH (14:00)
--- NOTE | 2016-05-31 15:18 | HIMOPRPT ---
DATE OF PROCEDURE: 05/31/16 PREOPERATIVE DIAGNOSIS: Dry gangrene of five digits of left lower extremity, severe peripheral arterial disease, right foot abscess POSTOPERATIVE DIAGNOSIS: Dry gangrene of five digits of left lower extremity, severe peripheral arterial disease, right foot abscess PROCEDURE: Left [id number] amputation, drainage of abscess of the right foot SURGEON: Frankie Interiano DO. ANESTHESIA: Spinal anesthesia with monitored anesthesia care ANESTHESIOLOGIST: Dr. Bo Yung SPECIMEN: farrell, ankle, and foot. SPONGE COUNT: Correct. DRAINS: None. COMPLICATION: None PATIENT CONDITION: Stable. ESTIMATED BLOOD LOSS: 200 mL. INDICATIONS: This is a 71-year-old male with severe peripheral arterial disease that presented with dry gangrene of all five digits of the left foot and septic shock. The patient had minimal blood flow to the left calf. Noninvasive vascular studies were performed. The patient was not a candidate for a revascularization procedure. The patient had minimal purulent drainage from the right foot in the area of the second digit. It was recommended to this patient left [id number] amputation and right foot incision and drainage. . The risks were discussed include, but not limited to bleeding, infection, chronic nonhealing wound, chronic pain, phantom limb pain or phantom digit pain , need for further amputation of surgery, and perioperative cardiac and respiratory morbidity and mortality.Risks associated with operation were discussed with the patient in detail including, but not limited to bleeding, infection, deep vein thrombosis, resultant pulmonary embolism, injury to cutaneous nerves, resultant phantom limb pain or chronic pain in this area, perioperative cardiac and respiratory morbidity and mortality, and need for reoperation and re-amputation more proximally. FINDINGS: There was dry gangrene of all five digits of the left foot. There was minimal blood flow at the left posterior tibial artery. There were no abscesses. There was no necrotic muscle. There was no evidence of necrotizing fasciitis. There was scant purulent drainage from a pinpoint opening at the plantar aspect of the right foot adjacent to the base of second digit this appeared to be a superficial blister. PROCEDURE IN DETAIL: CLAUDY LARRY was then taken to the operative suite at [facility].Spinal anesthesia was administered. Monitored anesthesia care was begun.. All members of the surgical team were in agreement of correct patient, correct procedure, and correct laterality. The left foot, farrell, knee and mid thigh were sterilely prepped and draped in the usual fashion. Again, all members of surgical team were in agreement of correct patient and correct procedure.An incision was made approximately the proximal one-third of the tibia. Incision was carried down with skin knife and then with electrocautery. Periosteal elevator was used to elevate the musculature and tendons attachments to a point approximately 1 cm cephalad to the tibial transection level. At this point, it was approximately 4 cm cephalad to the incision. Incision was carried down and dissection carried down to the posterior aspect. The anterior tibial, posterior tibial, peroneal arteries, and veins were clamped and clamps were replaced with #2-0 Vicryl suture ligatures. Proximal nerves were clamped, tied, and allowed to retract with absorbable sutures. Utilizing a bone saw, the tibia and fibula were transected. No sharp edges were identified. The anterior aspect of the tibia was beveled with a rasp. The posterior gastrocnemius muscle was divided with electrocautery. Hemostasis was excellent. The area was irrigated and aspirated dry. The muscle was closed over the bone with #2-0 Vicryl. The subcutaneous tissue, an additional muscle, and fascia were closed with #0 Vicryl suture after ensuring all sponge, needle, and instrument counts were correct x2. The subcutaneous tissue was closed with #2-0 Vicryl. The skin was closed with 2-0 Monocryl. There was inadequate posterior skin flap secondary to the patient's previous edema of the skin and chronic peripheral arterial disease such that skin distal to the incision was of very poor quality and not suitable for a skin flap. The area was cleansed. A I wound VAC was applied to the open area of the incision. Attention was turned to the right foot. This foot had been previously prepped and draped. Pinpoint opening was identified and drained. It was copiously irrigated and aspirated dry. Dressing was applied. Anesthesia was reversed. Mr. Larry was taken to recovery having tolerated this procedure well.
--- NOTE | 2016-05-31 15:44 | SC.ANESPOS ---
Post-Anesthesia Note LOC: Fully Awake Post-Anesthesia Assessment: Awake, Returned to Baseline, Hemodynamically Stable , Pain Control Adequate Phase I & II Recovery Complete: Yes Apparent Anesthesia Complication: No : N - Vital Signs Blood Pressure: 95/52 Pulse: 107 Resp Rate: 12 O2 Sat: 96 Temp: 97.6 F
--- NOTE | 2016-05-31 16:57 | PCM.SURGRO ---
05/31/16 AT 1656. No leak at I wound VAC. Dressing intact. Treatment plan for wound discussed with ICU nurse, Zuly. We will continue to monitor closely.
--- NOTE | 2016-05-31 17:18 | GENMEDPROG ---
Subjective Note: Patient in bed responsive and follows commands, still acutely ill and toxic- appearing. Still fair amount of both legs pain. Notes Reviewed: Yes Events from last night noted and discussed with Clinical Staff Current Medication List: Reviewed Currently: Reports: Cough, CLAYTON, Sputum, Reflux Sx DVT Prophylaxis: Yes - Physical Examination Vital Signs and I&O: Last Vital Signs Temp 98.8 F 05/31/16 15:59 Pulse 96 05/31/16 15:59 Resp 12 05/31/16 15:59 BP 86/59 L 05/31/16 15:59 Pulse Ox 98 05/31/16 15:59 Oxygen Pulse Oxygen Saturation 98 O2 Device Nasal Cannula Oxygen Flow Rate 2 Fraction of Inspired Oxygen ( 100 FIO2) Intake & Output 05/28/16 05/29/16 05/30/16 05/31/16 23:59 23:59 23:59 23:59 Intake Total 6031 7267 3907 1550 Output Total 617 718 4809 475 Balance 5131 6417 2907 1075 Patient's weight 99.382 kg 99.382 kg 100.38 kg 100.561 kg General: Alert, Cooperative, Mild distress, Other (More awake today) HEENT: Normal, PERRLA, EOMI, Anicteric Sclera Neck: Non-tender, Normal Trachea alignment, No Thyromegaly palpable, Limited range of motion Lymphatics: Normal Respiratory: Normal - CTA, Diminished, Rhonchi Cardiovascular: Regular rate, Regular rate and rhythm, Normal S1, Normal S2, Murmurs GI: Normal bowel sounds, Soft, Non tender, No hepatospenomegaly, No masses, Obese Extremities/Musculoskeletal: Other (Left toes are black with serosanguineous drainage, moderately tender. Right 2nd toe has some duskiness with black eschar on it with serosanguineous drainage.) Skin: No breakdown Neurological: Normal speech, Cranial nerves 3-12 NL Psych/Mental Status: Anxious Lab/DI/Studies Reviewed: Allergies No Known Allergies Allergy (Verified 12/09/15 15:58) 05/31/16 05:12 05/31/16 05:12 Abnormal Lab Results 05/31/16 05/31/16 05/31/16 05:12 05:12 05:12 Hgb 9.1 L Hct 29.4 L PT 12.8 H APTT 36.9 H Potassium 3.4 L Chloride 113 H Carbon Dioxide 19 L BUN 61 H Creatinine 2.20 H Estimated GFR (MDRD) 30 L Calcium 7.4 L - Assessment (1) Sepsis Acute A41.9 - SEPSIS, UNSPECIFIED ORGANISM Qualifiers: Sepsis type: sepsis due to unspecified organism Qualified Code(s): A41.9 - Sepsis, unspecified organism Comment/Plan: Continue broad-spectrum and IV antibiotics and IV fluids. Monitor hemodynamics in ICU setting. (2) Acute renal failure Acute N17.9 - ACUTE KIDNEY FAILURE, UNSPECIFIED Qualifiers: Acute renal failure type: with acute tubular necrosis Qualified Code(s): N17.0 - Acute kidney failure with tubular necrosis Comment/Plan: Avoid any nephrotoxins, continue aggressive IV hydration monitor BMP. Creatinine down to 2.2 today (3) Gangrene of lower extremity Acute I96 - GANGRENE, NOT ELSEWHERE CLASSIFIED Comment/Plan: Follow by surgery, will likely require left BKA later on today (4) Anemia Acute D64.9 - ANEMIA, UNSPECIFIED Qualifiers: Anemia type: unspecified type Iron deficiency anemia type: I Vitamin B12 deficiency anemia type: V Folate deficiency anemia type: F Bone marrow failure anemia type: B Hemolytic anemia type: H Other causes of anemia: O Qualified Code(s): D64.9 - Anemia, unspecified Comment/Plan: Improved after blood transfusion.. Monitor counts transfuse as needed indicated, blood count falling again slightly, though no signs or symptoms of blood loss. Likely related to large amount of fluid administered overnight due to hypotension. Will continue to trend hemoglobin daily. (5) Metabolic encephalopathy Acute G93.41 - METABOLIC ENCEPHALOPATHY Comment/Plan: Continue supportive care. Avoid excessive sedation and anticholinergics. Mentation improved today (6) PAD (peripheral artery disease) Acute I73.9 - PERIPHERAL VASCULAR DISEASE, UNSPECIFIED Comment/Plan: Continue aspirin. Off Xarelto in preparation for surgery (7) Rhabdomyolysis Acute M62.82 - RHABDOMYOLYSIS Qualifiers: Rhabdomyolysis type: non-traumatic Encounter type: E Qualified Code(s): M62.82 - Rhabdomyolysis Comment/Plan: Continue aggressive IV hydration monitor CPK (8) Atrial fibrillation Chronic I48.91 - UNSPECIFIED ATRIAL FIBRILLATION Qualifiers: Atrial fibrillation type: chronic Qualified Code(s): I48.2 - Chronic atrial fibrillation Comment/Plan: Continue beta-lidia ,keep K more than 4 magnesium more than 2. (9) Dehydration Resolved E86.0 - DEHYDRATION Comment/Plan: As above continue aggressive IV hydration. (10) Rectal abscess Acute Comment/Plan: Status post I&D by surgery. Continue IV antibiotics and local care (11) Toxic metabolic encephalopathy Acute G92 - TOXIC ENCEPHALOPATHY Comment/Plan: Continue supportive care , mentation improving (12) Hypokalemia Acute E87.6 - HYPOKALEMIA Comment/Plan: Replace and monitor Case Care Discussed with: Patient, Consultants, Nursing Staff, Respiratory Therapy, Refinery Technician Education/Counseling Given To: Patient Education/Counseling Given Regarding: Diagnosis, Treatment, Prognosis, Follow Up Total Time: 55 min. Critical Care: Yes Code: 291
[2016-05-31] MEDS: PANTOPRAZOLE 40 MG VIAL IV SCH (17:26)
--- NOTE | 2016-05-31 17:57 | HIMOPRPT ---
DATE OF PROCEDURE: 05/31/16 PREOPERATIVE DIAGNOSIS: Poor peripheral IV access. POSTOPERATIVE DIAGNOSIS: Poor peripheral IV access. PROCEDURE: Insertion of left internal jugular central venous catheter to 16 cm with ultrasound guidance. SURGEON: Frankie Interiano DO. ANESTHESIA: Local anesthesia, 1% lidocaine DRAINS: None. COMPLICATIONS: Stat portable chest x-ray pending at time of this report PATIENT CONDITION: Stable. ESTIMATED BLOOD LOSS: 1 ml. INDICATIONS: This is a 71-year-old M with extremely poor peripheral IV access, need for central venous catheter insertion for intravenous fluids, frequent laboratory monitoring, and intravenous medications. It is recommend for this patient, central venous catheter insertion. This is an emergent procedure. The risks include, but not limited to bleeding, infection, pneumothorax requiring tube thoracostomy and possible emergent thoracotomy, catheter migration, deep vein thrombosis, resultant pulmonary embolism, perioperative cardiac and respiratory morbidity and mortality. All questions were answered and informed consent was obtained. FINDINGS: On ultrasound guidance, the internal jugular vein was lateral and superficial internal carotid artery. No thrombus identified within the visualized segment of the left internal jugular vein. Stat portable chest x-ray postprocedure is pending at time of this report. PROCEDURE IN DETAIL: CLAUDY LARRY was placed in Trendelenburg position in the intensive care unit bed. Right side of the neck and chest was sterilely prepped and draped in usual fashion, infiltrated with local anesthetic. Utilizing ultrasound guidance, the right internal jugular vein was identified. An 18-gauge catheter and needle were advanced under negative suction and on first pass, there was return of dark bluish nonpulsatile blood. Guidewire was inserted without difficulty and without resistance, and using standard Seldinger technique, a triple-lumen central venous catheter was inserted. All 3 ports were aspirated and flushed without difficulty. It was sewn in 3 places. A sterile occlusive dressing was applied over this. Stat portable chest x-ray, pending at the time of this report. Full sterile precautions were used throughout the procedure.
--- NOTE | 2016-05-31 18:48 | DIRPT ---
CLINICAL DATA: Central venous catheter insertion. EXAM: PORTABLE CHEST 1 VIEW COMPARISON: 05/29/2016 FINDINGS: There has being a left internal jugular approach central venous catheter placement, tip overlies the expected location of the junction of innominate vein/superior vena cava. Right PICC line is stable. The cardiac silhouette is enlarged. Mediastinal contours appear intact. There is no evidence of pneumothorax. There are low lung volumes with increasing streaky peribronchial airspace opacities in the right more than left lung base. Osseous structures are without acute abnormality. Soft tissues are grossly normal. IMPRESSION: Status post insertion of left internal jugular approach central venous catheter, tip at the expected location of the junction of superior vena cava and innominate vein. No evidence of pneumothorax. Low lung volumes with increasing bilateral lower lobe streaky peribronchial opacities. Differential diagnosis includes subsegmental atelectasis, development of pulmonary vascular congestion or early bronchopneumonia. Electronically Signed By: Brooklyn Romero M.D. On: 05/31/2016 18:46
[2016-05-31] MEDS ORDERED: NS 1,000 ML IV ONE (19:16)
[2016-05-31] MEDS: Norepinephrine in D5W infusion 8,000 MCG/250 ML BAG IV SCH (19:53)
[2016-05-31] MEDS: Linezolid 600 mg/300 ml Premix 600 MG/300 ML RTU IV SCH ×2 (19:57→21:54)
[2016-05-31] MEDS ORDERED: CHLORHEXIDINE (HIBICLENS) 4 OZ BOTTLE TOP SCH (21:00)
[2016-05-31] MEDS: SENNA CONCENTRATE TAB PO SCH (21:55)
[2016-05-31] MEDS ORDERED: PHENYLEPHRINE 10 MG/ML VIAL IC ONE (22:14)
[2016-05-31] MEDS ORDERED: KETAMINE 50 MG/ML SYRINGE IV ONE (22:14)
[2016-05-31] MEDS ORDERED: MIDAZOLAM 2 MG/2 ML VIAL IV ONE (22:14)
[2016-05-31] MEDS ORDERED: FENTANYL 100 MCG/2 ML VIAL IV ONE (22:14)
[2016-06-01] MEDS: MUPIROCIN 2% OINT 22 GM TUBE NAS SCH ×2 (00:04→08:59)
[2016-06-01] MEDS: PIPERACILLIN AND TAZOBACTAM 4.5 GM in D5W 100 ML IV SCH ×3 (00:04→16:51)
[2016-06-01] MEDS: NS 1,000 ML IV PRN ×6 (01:00→06:30)
[2016-06-01] MEDS: CHLORHEXIDINE (HIBICLENS) 4 OZ BOTTLE TOP SCH (03:02)
[2016-06-01] MEDS ORDERED: ENOXAPARIN 60 MG/0.6 ML PFS SQ SCH (03:32)
[2016-06-01 04:30] LABS: ALLEN'S TEST PASS; TCO2 14.5 MMOL/L (23-27)
[2016-06-01 04:31] LABS: ABG Draw Site Right Radial
[2016-06-01] MEDS ORDERED: SODIUM BICARBONATE 100 ML IV SCH (05:00)
[2016-06-01] MEDS: Linezolid 600 mg/300 ml Premix 600 MG/300 ML RTU IV SCH (05:05)
[2016-06-01] MEDS: SODIUM BICARBONATE IV SCH ×3 (05:10→15:29)
[2016-06-01] MEDS: WATER IV SCH ×3 (05:10→15:29)
[2016-06-01 06:20] LABS: MPV 8.4 fL (7.4-10.4)
[2016-06-01 06:39] LABS: BLOOD UREA NITROGEN 54 MG/DL (9-20); CALCULATED OSMOLALITY 288 MOs/Kg (270-290); CHLORIDE 116 mEq/L (98-107); GLUCOSE 105 MG/DL (70-99); SODIUM LEVEL 142 mEq/L (137-146)
[2016-06-01 07:09] LABS: CALCIUM 6.7 MG/DL (8.4-10.2)
[2016-06-01 07:10] LABS: CALC CORRECTED 9.2 MG/DL (8.4-10.2)
[2016-06-01 07:51] LABS: SEG NEUTROPHIL 84 % (45-76)
[2016-06-01] MEDS ORDERED: FLU VACCINE (Afluria) 0.5 ML DOSE IM ONE (08:00)
--- NOTE | 2016-06-01 08:03 | GENMEDPROG ---
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 Says he is uncomfortable, moaning at times. Says that his bilateral lower extremities are painful. Denies any shortness of breath or chest pain. Has been hypotensive overnight, now on pressors and oliguric. Notes Reviewed: Yes Events from last night noted and discussed with Clinical Staff Current Medication List: Reviewed Currently: Reports: Sputum, Reflux Sx DVT Prophylaxis: Yes - Physical Examination Vital Signs and I&O: Last Vital Signs Temp 97.5 F 06/01/16 07:00 Pulse 110 06/01/16 07:30 Resp 18 06/01/16 06:30 BP 96/66 L 06/01/16 07:30 Pulse Ox 98 06/01/16 07:30 Oxygen Pulse Oxygen Saturation 98 O2 Device Nasal Cannula Oxygen Flow Rate 2.5 Fraction of Inspired Oxygen ( 100 FIO2) Intake & Output 05/30/16 05/31/16 06/01/16 06/02/16 06:59 06:59 06:59 06:59 Intake Total 6242 3950 7473 Output Total 1250 900 420 Balance 4992 3050 7053 Patient's weight 100.38 kg 100.561 kg 100.561 kg General: Alert, Cooperative, Mild distress, Other (More awake today) HEENT: Normal, PERRLA, EOMI, Anicteric Sclera Neck: Non-tender, Normal Trachea alignment, No Thyromegaly palpable, Limited range of motion Lymphatics: Normal Respiratory: Diminished. negative: Rhonchi, Tachypnea, Wheezes Cardiovascular: Regular rate, Regular rate and rhythm, Normal S1, Normal S2, Murmurs GI: Normal bowel sounds, Soft, Non tender, No hepatospenomegaly, No masses, Obese Extremities/Musculoskeletal: Other (Right lower extremity is wrapped, he has trace lower extremity edema. He is now status post left [id number] amputation. A wound VAC is in place.) Skin: No breakdown Neurological: Normal speech, Cranial nerves 3-12 NL Psych/Mental Status: Somnolent, Lethargic Lab/DI/Studies Reviewed: Laboratory Tests 05/30/16 05/30/16 05/31/16 03:53 03:53 05:12 WBC 15.2 H Hgb pH pCO2 pO2 Potassium Carbon Dioxide 19 L Creatinine 2.50 H 2.20 H Calcium 7.4 L 06/01/16 06/01/16 06/01/16 04:25 05:25 05:25 WBC 21.9 H Hgb 8.0 L pH 7.140 L* pCO2 39.0 pO2 100.0 Potassium 3.7 Carbon Dioxide 14 L Creatinine 2.10 H Calcium 6.7 L* - Assessment (1) Acute on chronic renal failure Acute N17.9 - ACUTE KIDNEY FAILURE, UNSPECIFIED; N18.9 - CHRONIC KIDNEY DISEASE, UNSPECIFIED (2) Anemia Acute D64.9 - ANEMIA, UNSPECIFIED Qualifiers: Anemia type: unspecified type Qualified Code(s): D64.9 - Anemia, unspecified Comment/Plan: Improved after blood transfusion.. Monitor counts transfuse as needed indicated, blood count falling again slightly, though no signs or symptoms of blood loss. Likely related to large amount of fluid administered overnight due to hypotension. Will continue to trend hemoglobin daily. (3) Dry gangrene Acute I96 - GANGRENE, NOT ELSEWHERE CLASSIFIED Comment/Plan: Severe worsenening over 1.5 days prior to admission. Plan: Now status post amputation of the left lower extremity. IV antibiotics: IV Zosyn and Vancomycin initially, vancomycin changed to linezolid due to acute kidney injury. Consulted Dr. Interiano, who performed BKA on May 31. Continues to follow. (4) Gangrene of lower extremity Acute I96 - GANGRENE, NOT ELSEWHERE CLASSIFIED Comment/Plan: Follow by surgery, will likely require left BKA later on today (5) Hypokalemia Acute E87.6 - HYPOKALEMIA Comment/Plan: Replace and monitor (6) Metabolic encephalopathy Acute G93.41 - METABOLIC ENCEPHALOPATHY Comment/Plan: Continue supportive care. Avoid excessive sedation and anticholinergics. Mentation improved today (7) PAD (peripheral artery disease) Acute I73.9 - PERIPHERAL VASCULAR DISEASE, UNSPECIFIED Comment/Plan: Continue aspirin. Off Xarelto in preparation for surgery (8) Rectal abscess Acute Comment/Plan: Status post I&D by surgery. Continue IV antibiotics and local care (9) Metabolic acidosis Acute E87.2 - ACIDOSIS Comment/Plan: Most likely related to his renal failure. Now on bicarb drip, recheck bicarb in the morning. - Plan In summary this patient is acutely and critically ill. The patient requires treatment of vital organ failure and measures to prevent further life- threatening deterioration of the above conditions. I personally reviewed and ordered lab testing, as well as imaging. I reviewed old medical records from previous hospitalizations as available, and spent the time mentioned below in critical care of this patient including counseling and coordination of care. Continue empiric IV antibiotics, watch urine output and hemodynamics closely. Will recheck lactate this morning. Patient is at significant risk of decompensation and . Total Time: 95
--- NOTE | 2016-06-01 08:11 | DIRPT ---
CLINICAL DATA: Respiratory distress EXAM: PORTABLE CHEST 1 VIEW COMPARISON: Portable exam 0551 hours compared to 05/31/2016 FINDINGS: RIGHT arm PICC line tip is seen to the SVC, final tip position uncertain due to light technique at the mediastinum. LEFT jugular central venous catheter tip projects over LEFT brachiocephalic vein near SVC confluence. Upper normal heart size. Atherosclerotic calcification aorta. Significantly decreased lung volumes with infiltrate in the mid to lower RIGHT lung and minimally in LEFT lower lobe which could represent asymmetric edema or infection. Small RIGHT pleural effusion. No pneumothorax. IMPRESSION: Asymmetric infiltrates RIGHT greater than LEFT question asymmetric edema versus infection. Very low lung volumes with small RIGHT pleural effusion. Little change. Electronically Signed By: Doc Cassidy M.D. On: 06/01/2016 08:08
[2016-06-01] MEDS: NS 1,000 ML IV SCH (09:02)
[2016-06-01] MEDS: Norepinephrine in D5W infusion 8,000 MCG/250 ML BAG IV SCH ×2 (09:17→16:52)
[2016-06-01] MEDS: COLLAGENASE OINTMENT 30 GM TUBE TOP SCH (09:18)
[2016-06-01] MEDS: Albuterol/Ipratropium Neb 3 ML NEB NEB SCH ×3 (09:26→20:38)
--- NOTE | 2016-06-01 11:07 | PCM.SURGRO ---
- Subjective Chief Complaint: postoperative day #1 left below the knee amputation Post Op Day: 1 Patient: Reports: Still having pain (Patient moans in pain when any part of body is palpated or lifted.), Bowel Movement, Afebrile. Denies: Voiding without difficulty (Bain catheter in. Markedly decreased urine output.), Vomiting - Objective / Physical Exam Vital Signs: Temperature: 97.5 F (06/01/16 09:33) HR: 109 (06/01/16 08:00)RR: 18 (06/01/16 06 :30) BP: 91/64 (06/01/16 08:00)Pulse Ox: 99 (06/01/16 09:25) General: negative: Alert (Patient somnolent.) HEENT: Mucous membr. moist/pink (Edematous) Respiratory: Diminished (bilateral bases) Cardiovascular: negative: Regular rate (Tacchycardic) Gastrointestinal: Soft, Bowel Sounds. negative: Distended Extremities: Other (Right extremity: No purulent drainage. +1 pitting edema. Weak +1/4 dorsalis pedis pulse. Diffuse tenderness, scaling and open weeping wounds. No evidence of cellulitis, abscess or other infection. Santyl, Petroleum cream and Mupirocin applied to wounds of various stages, respectively. No dressing applied applied secondary to tenderness. Left lower extremity: Wound VAC in place. No leak identified. Minimal serous drainage collected. No purulent drainage. No evidence of infection at left BKA surgical site.) Skin: Other (Wounds as above) Surgical wound: Other (As above) - Assessment and Plan (1) PAD (peripheral artery disease) Chronic I73.9 - PERIPHERAL VASCULAR DISEASE, UNSPECIFIED Present on Admission: Yes Comment/Plan: This will increase the patient's risks of perioperative complications. (2) Dry gangrene Acute I96 - GANGRENE, NOT ELSEWHERE CLASSIFIED Present on Admission: Yes Comment/Plan: The patient is postoperative day #1 left below the knee amputation. The surgical site is healing well without evidence of infection. We will plan for [facility] wound VAC to be changed Tuesday, Tuesday and Tuesday. The RIGHT lower extremity has no evidence of dry or wet gangrene, abscess, cellulitis or other infection. There is deep tissue injury at the right heel. We will plan for off loading with foam boot. I have discussed this with the patient's nurse, ESTEFANY Woodard and physical therapist. Boot will be applied. Specialty mattress has been ordered. (3) Abscess of buttock, left Acute L02.31 - CUTANEOUS ABSCESS OF BUTTOCK Present on Admission: Yes Comment/Plan: We will plan for daily packing changes and continue broad spectrum intravenous antibiotics. Speciality mattress has been ordered.
[2016-06-01] MEDS: PANTOPRAZOLE 40 MG VIAL IV SCH (12:25)
[2016-06-01] MEDS ORDERED: NS 1,000 ML IV ONE (12:33)
--- NOTE | 2016-06-01 13:30 | PCM.SURGRO ---
06/01/16 at 1320. I discussed with the patient's sister, Rhonda, and son in law regarding the patient's current treatment plan and prognosis, specifically regarding left lower extremity and right lower extremity. All questions were answered.
[2016-06-01 14:06] VITALS: TEMP 98.7
[2016-06-01] MEDS ORDERED: Norepinephrine in D5W infusion 8,000 MCG/250 ML BAG IV ONE (16:49)
[2016-06-01 17:38] VITALS: BP 68/47; PULSE 107
--- NOTE | 2016-06-02 07:13 | PCM.DEATH ---
Discharge Disposition: - Summary Notes Physical Examination: VS- Absent Gen- Pt unresponsive HEENT- Pupils Fixed and dilated. Lungs- Breath sounds absent. Heart- Heart sounds absent [facility] [id number] CLAUDY LARRY [id number] Admission Date/Time: 05/27/16 19:17 Admission Diagnoses: left BKA Reason for hospitalization: This is a 71-year-old male with a history of peripheral vascular disease was admitted to the hospital with left lower extremity severe infection, as well as right lower extremity and buttocks abscesses. He was admitted by medical service, with surgical service consulting. Surgical service incised and drained multiple abscesses, and patient was admitted to the intensive care unit. He had left below-knee amputation with General surgery on June 01, after which time he was admitted back to the intensive care unit. He developed significant hypotension , requiring pressor support to maintain his blood pressure. He also had significant lower extremity pain after surgery. Despite aggressive IV fluid administration, aggressive broad-spectrum antibiotics and pressors, the patient developed significant hypotension, as well as oliguric acute renal failure. After several discussions with the patient's sister at the bedside, who is the patient's healthcare power of deputy commonwealth's attorney, she elected to make the patient a do not resuscitate on the afternoon of June 01. Several hours later, the patient . Significant findings: Procedures performed and care, treatment and services provided: Patient had multiple incision and drainage of abscesses in his lower extremities and buttocks. He also had left below the knee amputation on May 31. Information provided to the family, as appropriate: I had several long discussions regarding current medical status and goals of care with the patient' s sister, who is his durable power of deputy commonwealth's attorney. Autopsy plans: None Date/Time of Patient's Expiration: June 01, 6pm. Cause of (Primary discharge diagnosis): Overwhelming sepsis Final Diagnosis: Peripheral vascular disease, lower extremity abscesses, status post left [id number] amputation, oliguric acute renal failure.
[2016-06-02] MEDS ORDERED: FLU VACCINE (Afluria) 0.5 ML DOSE IM ONE (08:00)
== END 2016-06-01 22:15 | disposition expired | DRG 853 ==
LOC: ED 16:52 → ICU 19:17
PROVIDERS: ADMIT Internal Medicine; ATTEND Internal Medicine
PROC: 0H98XZZ Drainage of Buttock Skin, External Approach (ICD-10-PCS; 2016-05-27)
PROC: 30243N1 Transfusion of Nonautologous Red Blood Cells into Central Vein, Percutaneous Approach (ICD-10-PCS; 2016-05-28)
PROC: 05HN33Z Insertion of Infusion Device into Left Internal Jugular Vein, Percutaneous Approach (ICD-10-PCS; 2016-05-31)
PROC: B544ZZA Ultrasonography of Left Jugular Veins, Guidance (ICD-10-PCS; 2016-05-31)
PROC: 0H9MXZZ Drainage of Right Foot Skin, External Approach (ICD-10-PCS; 2016-05-31)
PROC: 0Y6J0Z1 Detachment at Left Lower Leg, High, Open Approach (ICD-10-PCS; principal; 2016-05-31 12:25)
PROC: 039B3ZZ Drainage of Right Radial Artery, Percutaneous Approach (ICD-10-PCS; 2016-06-01)
DX: A41.9 Sepsis, unspecified organism (principal); G93.41 Metabolic encephalopathy; N17.0 Acute kidney failure with tubular necrosis; M62.82 Rhabdomyolysis; I48.2 Chronic atrial fibrillation; L02.31 Cutaneous abscess of buttock; E86.0 Dehydration; I12.9 Hypertensive chronic kidney disease with stage 1 through stage 4 chronic kidney disease, or unspecified chronic kidney disease; L02.611 Cutaneous abscess of right foot; I73.9 Peripheral vascular disease, unspecified; L97.529 Non-pressure chronic ulcer of other part of left foot with unspecified severity; L97.519 Non-pressure chronic ulcer of other part of right foot with unspecified severity; R65.20 Severe sepsis without septic shock; I95.81 Postprocedural hypotension; Z74.01 Bed confinement status; M06.9 Rheumatoid arthritis, unspecified; E87.6 Hypokalemia; I25.10 Atherosclerotic heart disease of native coronary artery without angina pectoris; Z87.891 Personal history of nicotine dependence; D64.9 Anemia, unspecified; N18.9 Chronic kidney disease, unspecified; Z95.5 Presence of coronary angioplasty implant and graft; E78.00 Pure hypercholesterolemia, unspecified; K21.9 Gastro-esophageal reflux disease without esophagitis; Z79.82 Long term (current) use of aspirin; Z79.899 Other long term (current) drug therapy
CPT/HCPCS: 36415; 36430; 36600; 71010; 76770; 80048; 80053; 81001; 82040; 82150; 82550; 82553; 82803; 83605; 83690; 83735; 83874; 84484; 85007; 85014; 85018; 85025; 85027; 85379; 85610; 85651; 85730; 86850; 86900; 86901; 86920; 87040; 87070; 87075; 87077; 87086; 87186; 87641; 90656; 93922; 94640; 96365; 96366; 96375; 99284; A4217; G0237; J1650; J1940; J2001; J2020; J2250; J2270; J2370; J2543; J3010; J3370; J3480; J3490; J7060; J7620; P9016; S0164